=== PATIENT | female | born 1940 | race Caucasian/White ===

== ENCOUNTER 2017-09-16 20:51 | Inpatient (IN) | payer OTHER, MEDICARE ==
[2017-09-16 21:04] VITALS: BP 161/73; PULSE 97; RESP 16; TEMP 99.5; O2SAT 96
[2017-09-16] MEDS ORDERED: MORPHINE SULFATE 2 MG/ML SYRINGE IV PUSH ONE (21:30)
[2017-09-16] MEDS ORDERED: SODIUM CHLORIDE 0.9% FLUSH 10 ML FLUSH IVF PRN (21:30)
--- NOTE | 2017-09-16 21:32 | PD ---
HPI Chief Complaint: Fall Time Seen by Provider: 21:25 Travel History International Travel<30 days: No Contact w/Intl Traveler<30days: No Traveled to known affect area: No History of Present Illness HPI 77-year-old female brought in by EMS status post being found after a fall it was unwitnessed by her son. Patient does not remember falling. She states she has had similar episodes in the past. Patient only complains of right hip and buttock pain. Patient has mild headache. She denies hitting her head or neck pain. She denies recent illness. She has no dizziness, nausea, vomiting, or other symptoms. Patient has no injuries to the upper extremities. Pain in her buttock and hip is a 6 out of 10. She denies numbness and tingling in the lower extremities. She denies any other focal neurologic deficits. Patient has no known drug allergies. PFSH Past Medical History Cerebrovascular Accident: Yes Diabetes: Yes Patient Takes Glucophage: No Diminished Hearing: No Tetanus Vaccination: Unknown Social History Alcohol Use: No Tobacco Use: No Substance Use: No Allergies-Medications (Allergen,Severity, Reaction): Coded Allergies: No Known Allergies (Unverified , 09/16/17) Review of Systems ROS Limitations: Poor Historian Except as stated in HPI: all other systems reviewed are Neg General / Constitutional: No: Fever Eyes: No: Visual changes HENT: No: Headaches Cardiovascular: No: Chest Pain or Discomfort Respiratory: No: Shortness of Breath Gastrointestinal: No: Abdominal Pain Genitourinary: No: Dysuria Musculoskeletal: No: Pain Skin: No Rash Neurologic: No: Weakness Psychiatric: No: Depression Endocrine: No: Polydipsia Hematologic/Lymphatic: No: Easy Bruising Physical Exam Exam Limitations: Poor Historian Narrative GENERAL: Patient appears in no acute distress. She seems oriented 3. SKIN: Warm and dry. Normal color. Normal turgor. No signs of trauma. No abrasions. HEAD: Atraumatic. Normocephalic. Nontender. EYES: Pupils equal and round. No scleral icterus. No injection or drainage. ENT: No nasal bleeding or discharge. Mucous membranes pink and moist. No dental injury. Pharynx is clear. Airways patent. NECK: Trachea midline. No bony tenderness or step-off. Range of motion is full and supple CARDIOVASCULAR: Regular rate and rhythm. No murmurs gallops or rubs appreciated RESPIRATORY: No accessory muscle use. Clear to auscultation. Breath sounds equal bilaterally. GASTROINTESTINAL: Abdomen soft, non-tender, nondistended. Hepatic and splenic margins not palpable. MUSCULOSKELETAL: Extremities without clubbing, cyanosis, or edema. No obvious deformities. Patient has soft tissue tenderness along the right lower lumbar and sacroiliac regions. Patient has no shortening, or crepitus in either hip. Pelvis rock is normal. No midline tenderness along the spinal cord. Patient is able to plantar flex and dorsiflex without difficulty. NEUROLOGICAL: Awake and alert. No obvious cranial nerve deficits. Motor grossly within normal limits. Five out of 5 muscle strength in the arms and legs. Normal speech. PSYCHIATRIC: Appropriate mood and affect; insight and judgment normal. Data Data Last Documented VS Vital Signs Date Time Temp Pulse Resp B/P (MAP) Pulse Ox O2 Delivery O2 Flow Rate FiO2 09/16/17 21:35 97 Room Air 09/16/17 21:04 99.5 97 16 161/73 (102) Orders Orders Electrocardiogram (09/16/17 21:25) Complete Blood Count With Diff (09/16/17 21:25) Comprehensive Metabolic Panel (09/16/17 21:25) Magnesium (Mg) (09/16/17 21:25) Ckmb (Isoenzyme) Profile (09/16/17 21:25) Troponin I (09/16/17 21:25) Act Partial Throm Time (Ptt) (09/16/17 21:25) Prothrombin Time / Inr (Pt) (09/16/17 21:25) Urinalysis - C+S If Indicated (09/16/17 21:25) Chest, Single Ap (09/16/17 21:25) Ct Brain W/O Iv Contrast(Rout) (09/16/17 21:25) Ecg Monitoring (09/16/17 21:25) Iv Access Insert/Monitor (09/16/17 21:25) Oximetry (09/16/17 21:25) Sodium Chloride 0.9% Flush (Ns Flush) (09/16/17 21:30) Morphine Inj (Morphine Inj) (09/16/17 21:30) Hip, Uni(Ap&Lat) W Ap Pelvis (09/16/17 21:25) Urine Culture (09/16/17 21:30) Sodium Chlorid 0.9% 500 Ml Inj (Ns 500 M (09/16/17 22:15) Lactic Acid (09/16/17 22:13) Act Partial Throm Time (Ptt) (09/16/17 22:13) Morphine Inj (Morphine Inj) (09/16/17 22:15) Sodium Chlor 0.9% 1000 Ml Inj (Ns 1000 M (09/16/17 22:13) Levofloxacin 500 Mg Premix Inj (Levaquin (09/16/17 22:15) Sodium Chloride 0.9% Flush (Ns Flush) (09/16/17 22:15) CKMB (09/16/17 21:30) CKMB% (09/16/17 21:30) Potassium Chloride (Kcl) (09/16/17 22:30) Labs Laboratory Tests Test 09/16/17 21:30 White Blood Count 11.8 TH/MM3 Red Blood Count 5.65 MIL/MM3 Hemoglobin 16.6 GM/DL Hematocrit 47.8 % Mean Corpuscular Volume 84.6 FL Mean Corpuscular Hemoglobin 29.4 PG Mean Corpuscular Hemoglobin Concent 34.7 % Red Cell Distribution Width 13.6 % Platelet Count 322 TH/MM3 Mean Platelet Volume 8.7 FL Neutrophils (%) (Auto) 73.1 % Lymphocytes (%) (Auto) 17.5 % Monocytes (%) (Auto) 8.3 % Eosinophils (%) (Auto) 0.3 % Basophils (%) (Auto) 0.8 % Neutrophils # (Auto) 8.6 TH/MM3 Lymphocytes # (Auto) 2.1 TH/MM3 Monocytes # (Auto) 1.0 TH/MM3 Eosinophils # (Auto) 0.0 TH/MM3 Basophils # (Auto) 0.1 TH/MM3 CBC Comment DIFF FINAL Differential Comment Prothrombin Time 10.3 SEC Prothromb Time International Ratio 1.0 RATIO Activated Partial Thromboplast Time 22.6 SEC Urine Color YELLOW Urine Turbidity CLOUDY Urine pH 5.5 Urine Specific [place] 1.021 Urine Protein 30 mg/dL Urine Glucose (UA) NEG mg/dL Urine Ketones 10 mg/dL Urine Occult Blood MOD Urine Nitrite NEG Urine Bilirubin NEG Urine Urobilinogen LESS THAN 2.0 MG/DL Urine Leukocyte Esterase LARGE Urine RBC 7 /hpf Urine WBC 66 /hpf Urine WBC Clumps FEW Urine Squamous Epithelial Cells 25 /hpf Urine Mucus MOD /lpf Microscopic Urinalysis Comment CULTURE INDICATED Blood Urea Nitrogen 12 MG/DL Creatinine 0.84 MG/DL Random Glucose 130 MG/DL Total Protein 9.0 GM/DL Albumin 3.9 GM/DL Calcium Level 9.7 MG/DL Magnesium Level 1.8 MG/DL Alkaline Phosphatase 121 U/L Aspartate Amino Transf (AST/SGOT) 42 U/L Alanine Aminotransferase (ALT/SGPT) 30 U/L Total Bilirubin 1.0 MG/DL Sodium Level 142 MEQ/L Potassium Level 3.2 MEQ/L Chloride Level 105 MEQ/L Carbon Dioxide Level 23.2 MEQ/L Anion Gap 14 MEQ/L Estimat Glomerular Filtration Rate 66 ML/MIN Total Creatine Kinase 952 U/L Troponin I LESS THAN 0.02 NG/ML MDM Medical Decision Making Medical Screen Exam Complete: Yes Emergency Medical Condition: Yes Medical Record Reviewed: Yes Differential Diagnosis Syncopal episode. Fall. Buttock contusion. Hip contusion. Possible fracture. CVA. TIA Narrative Course Patient appears medically stable at time of exam. Labs ordered including CBC, CMP, magnesium, cardiac panel, urinalysis, and coagulation studies. IV access is obtained the patient was given 2 mg morphine IV. EKG is ordered as well as CT of the brain, chest x-ray, and right hip x-ray with pelvis. CT of the brain shows: 1. Cortical volume loss with ventricular prominence. Mild chronic white matter ischemic changes. No acute findings. CBC shows slight leukocytosis of 11.8, hemoglobin is elevated at 16.6, hematocrit is 47.8. Coagulation studies are normal. Urinalysis suggestive of urinary tract infection, and culture is placed. Patient will be given 1000 mg Rocephin IV. Patient is given 500 mL of normal saline bolus. CMP showed potassium 3.2, normal BUN/creatinine, GFR 66, random glucose elevated once 30. AST slightly low at 42, alk phos is elevated 121, creatinine kinase is notable at 952. First troponin is less than 0.02. Total protein is 9.0. X-rays of the hip and pelvis show osteoarthritis otherwise no acute process. Chest x-ray is negative for acute process. Patient was discussed with Dr. Arana who recommends admitting the patient due to syncopal episode with elevated CPK, urinary tract infection, dehydration and risk of kidney injury. Calls placed to the hospitalist for admission. Diagnosis Primary Impression: Syncope Qualified Codes: R55 - Syncope and collapse Additional Impressions: Urinary tract infection Qualified Codes: N30.00 - Acute cystitis without hematuria Elevated CPK Unwitnessed fall Condition: Stable Louis Coronel September 16, 2017 21:32
[2017-09-16 21:35] VITALS: O2SAT 97
[2017-09-16 21:46] LABS: AUTOMATED NEUTROPHIL # 8.6 TH/MM3 (1.8-7.7); BASOPHIL # 0.1 TH/MM3 (0-0.2); BASOPHIL % 0.8 % (0.0-2.0); EOSINOPHIL % 0.3 % (0.0-4.0); HEMATOCRIT 47.8 % (35.0-46.0); HEMOGLOBIN 16.6 GM/DL (11.6-15.3); LYMPH % 17.5 % (9.0-44.0); LYMPHOCYTE # 2.1 TH/MM3 (1.0-4.8); MEAN CELL VOLUME 84.6 FL (80.0-100.0); MEAN CORPUSCULAR HEMOGLOBIN 29.4 PG (27.0-34.0); MEAN CORPUSCULAR HGB CONC 34.7 % (32.0-36.0); MEAN PLATELET VOLUME 8.7 FL (7.0-11.0); MONO % 8.3 % (0.0-8.0); NEUT % 73.1 % (16.0-70.0); PLATELET COUNT 322 TH/MM3 (150-450); RED BLOOD COUNT 5.65 MIL/MM3 (4.00-5.30); RED CELL DISTRIBUTION WIDTH 13.6 % (11.6-17.2); WHITE BLOOD COUNT 11.8 TH/MM3 (4.0-11.0)
--- NOTE | 2017-09-16 21:53 | RADRPT ---
EXAM DATE: 09/16/2017 9:47 PM EDT AGE/SEX: 77 years / Female INDICATIONS: Syncope. CLINICAL DATA: This is the patient's initial encounter. Patient reports that signs and symptoms have been present for 1 day and indicates a pain score of 0/10. MEDICAL/SURGICAL HISTORY: Cerebrovascular disease. Diabetes. None. RADIATION DOSE: 36.13 CTDI (mGy) COMPARISON: No prior [facility] exams available for comparison. TECHNIQUE: CT of the head without contrast. Using automated exposure control and adjustment of the mA and/or kV according to patient size, radiation dose was kept as low as reasonably achievable to ob tain optimal diagnostic quality images. FINDINGS: Cerebrum: There is cortical volume loss and ventricular prominence. Chronic white matter ischemic ch anges present. Posterior Fossa: The cerebellum and brainstem are intact. The 4th ventricle is midline. The cerebe llopontine angle is unremarkable. Extracranial: The visualized portion of the orbits is intact. Skull: The calvaria is intact. No evidence of skull fracture. CONCLUSION: 1. Cortical volume loss with ventricular prominence. Mild chronic white matter ischemic changes. No acute findings. Electronically signed by: Momo Sal MD 09/16/2017 9:52 PM EDT
[2017-09-16 21:55] LABS: PROTHROMBIN TIME - PATIENT 10.3 SEC (9.8-11.6)
[2017-09-16 22:02] LABS: BILIRUBIN, URINE NEG (NEG); BLOOD, URINE MOD (NEG); GLUCOSE,URINE NEG (NEG); KETONE, URINE 10 mg/dL (NEG); MUCUS URINE MOD /lpf (OCC); NITRITE,URINE NEG (NEG); PH, URINE 5.5 (5.0-8.5); SQUAMOUS EPITHELIAL CELL URINE 25 /hpf (0-5); URINE COLOR YELLOW (YELLW/STRAW); URINE LEUKOCYTE ESTERASE LARGE (NEG); WHITE BLOOD CELL CLUMPS FEW
[2017-09-16 22:13] LABS: ALBUMIN 3.9 GM/DL (3.4-5.0); AST (GOT) 42 U/L (15-37); BICARBONATE 23.2 MEQ/L (21.0-32.0); BLOOD UREA NITROGEN 12 MG/DL (7-18); CALCIUM 9.7 MG/DL (8.5-10.1); CHLORIDE 105 MEQ/L (98-107); CREATININE 0.84 MG/DL (0.50-1.00); GLOMERULAR FILTRATION RATE 66 ML/MIN (>89); GLUCOSE,RANDOM 130 MG/DL (74-106); MAGNESIUM 1.8 MG/DL (1.5-2.5); SODIUM (NA) 142 MEQ/L (136-145)
[2017-09-16] MEDS ORDERED: SODIUM CHLOR 0.9% 1000 ML INJ 1,000 ML IV SCH ×2 (22:13→22:43)
--- NOTE | 2017-09-16 22:14 | RADRPT ---
EXAM DATE: 09/16/2017 10:10 PM EDT AGE/SEX: 77 years / Female INDICATIONS: Pain post fall today. CLINICAL DATA: This is the patient's initial encounter. Patient reports that signs and symptoms have been present for 1 day and indicates a pain score of 4/10. MEDICAL/SURGICAL HISTORY: None. None. COMPARISON: No prior [facility] exams available for comparison. FINDINGS: Heart size is enlarged. Mild basilar dependent opacity, probably atelectasis. No pneumothorax or effu krystal. CONCLUSION: Cardiomegaly. Minimal basilar dependent atelectasis. Electronically signed by: Momo Sal MD 09/16/2017 10:13 PM EDT
[2017-09-16] MEDS ORDERED: SODIUM CHLORIDE 0.9% FLUSH 10 ML FLUSH IV FLUSH PRN ×2 (22:15→22:45)
[2017-09-16] MEDS ORDERED: SODIUM CHLORID 0.9% 500 ML INJ 500 ML IV ONE (22:15)
[2017-09-16] MEDS ORDERED: MORPHINE SULFATE 4 MG/ML INJ IV PUSH ONE (22:15)
[2017-09-16] MEDS ORDERED: LEVOFLOXACIN 500 MG PREMIX INJ 100 ML IV ONE (22:15)
--- NOTE | 2017-09-16 22:17 | RADRPT ---
EXAM DATE: 09/16/2017 10:12 PM EDT AGE/SEX: 77 years / Female INDICATIONS: Pain in right hip post fall today. CLINICAL DATA: This is the patient's initial encounter. Patient reports that signs and symptoms have been present for 1 day and indicates a pain score of 5/10. MEDICAL/SURGICAL HISTORY: None. None. COMPARISON: No prior [facility] exams available for comparison. FINDINGS: There is moderate osteoarthritis of the hips. No definite fracture identified. No dislocation. CONCLUSION: Moderate osteoarthritis. No acute fracture identified Electronically signed by: Momo Sal MD 09/16/2017 10:15 PM EDT
[2017-09-16 22:19] LABS: ALKALINE PHOSPHATASE 121 U/L (45-117); ALT (GPT) 30 U/L (10-53); TROPONIN I LESS THAN 0.02 NG/ML (0.02-0.05)
[2017-09-16] MEDS ORDERED: POTASSIUM CHLORIDE 20 MEQ CONTROLLED RELEASE TAB PO ONE (22:30)
[2017-09-16] MEDS ORDERED: ACETAMINOPHEN/HYDROcodone 325 MG/5 MG TAB PO PRN (22:45)
[2017-09-16] MEDS ORDERED: SENNOSIDES 8.6 MG TAB PO PRN (22:45)
[2017-09-16] MEDS ORDERED: MAGNESIUM HYDROXIDE SUSP 30 ML CUP PO PRN (22:45)
[2017-09-16] MEDS ORDERED: METOCLOPRAMIDE HCL 10 MG/2 ML VIAL IV PUSH PRN (22:45)
[2017-09-16] MEDS ORDERED: LACTULOSE SYRUP 20 GM/30 ML CUP PO PRN (22:45)
[2017-09-16] MEDS ORDERED: BISACODYL 10 MG SUPP RECTAL PRN (22:45)
[2017-09-16] MEDS ORDERED: ACETAMINOPHEN/HYDROcodone 325 MG/10 MG TAB PO PRN (22:45)
--- NOTE | 2017-09-16 22:46 | HHI.HP ---
HPI Service [facility] Primary Care Physician No Primary Care Physician Admission Diagnosis Diagnoses: (1) Fall Diagnosis: Principal (2) UTI (urinary tract infection) Diagnosis: Principal (3) Rhabdomyolysis Diagnosis: Principal Travel History International Travel<30 Days: No Contact w/Intl Traveler <30 Da: No Traveled to Known Affected Are: No History of Present Illness This is a 77-year-old female with a PMH of HTN and h/o CVA who was brought to the ER by EMS after being found lying on the floor by Son. Pt w/ little recollection of events. States she's had h/o recurrent falls in the past, however does not recall falling today. Denies fever, chills, nausea, vomiting, diarrhea, dizziness or chest pain. On arrival, BP 161/73, HR 97, O2 sat 96% on RA, Temp 99.5. WBC 11.8. K+ 3.2. CPK 952. Lactic Acid 1.6. INR 1.0. UA positive for UTI. CT Head with no acute findings. CXR cardiomegaly. Hip X- ray moderate osteoarthritis no acute fracture. S/p Levaquin in ER. Review of Systems Except as stated in HPI: all other systems reviewed are Neg ROS: 14 point review of systems otherwise negative. Past Family Social History Past Medical History PMH: HTN and h/o CVA Past Surgical History PAST SURGICAL HISTORY: None Allergies: Coded Allergies: No Known Allergies (Unverified , 09/16/17) Family History PAST FAMILY HISTORY: Reviewed. No h/o DM or CAD Social History PAST SOCIAL HISTORY: Negative for alcohol, tobacco or drugs. Physical Exam Vital Signs Vital Signs Date Time Temp Pulse Resp B/P (MAP) Pulse Ox O2 Delivery O2 Flow Rate FiO2 09/16/17 21:35 97 Room Air 09/16/17 21:04 99.5 97 16 161/73 (102) 96 Physical Exam PE: GENERAL: Pleasant elderly white female in no acute distress. HEENT: PERRLA, EOMI. No scleral icterus or conjunctival pallor. No lid lag or facial droop. CARDIOVASCULAR: Regular rate and rhythm. No obvious murmurs to auscultation. No chest tenderness to palpation. RESPIRATORY: No obvious rhonchi or wheezing. Clear to auscultation. Breath sounds equal bilaterally. GASTROINTESTINAL: Abdomen soft, non-tender, nondistended. BS normal. MUSCULOSKELETAL: Extremities without clubbing, cyanosis, or edema. No obvious deformities. NEUROLOGICAL: Awake, alert and oriented x4. No focal neurologic deficits. Moving both upper and lower extremities spontaneously. Laboratory Laboratory Tests Test 09/16/17 21:30 09/16/17 22:27 White Blood Count 11.8 Red Blood Count 5.65 Hemoglobin 16.6 Hematocrit 47.8 Mean Corpuscular Volume 84.6 Mean Corpuscular Hemoglobin 29.4 Mean Corpuscular Hemoglobin Concent 34.7 Red Cell Distribution Width 13.6 Platelet Count 322 Mean Platelet Volume 8.7 Neutrophils (%) (Auto) 73.1 Lymphocytes (%) (Auto) 17.5 Monocytes (%) (Auto) 8.3 Eosinophils (%) (Auto) 0.3 Basophils (%) (Auto) 0.8 Neutrophils # (Auto) 8.6 Lymphocytes # (Auto) 2.1 Monocytes # (Auto) 1.0 Eosinophils # (Auto) 0.0 Basophils # (Auto) 0.1 CBC Comment DIFF FINAL Differential Comment Prothrombin Time 10.3 Prothromb Time International Ratio 1.0 Activated Partial Thromboplast Time 22.6 Urine Color YELLOW Urine Turbidity CLOUDY Urine pH 5.5 Urine Specific [place] 1.021 Urine Protein 30 Urine Glucose (UA) NEG Urine Ketones 10 Urine Occult Blood MOD Urine Nitrite NEG Urine Bilirubin NEG Urine Urobilinogen LESS THAN 2.0 Urine Leukocyte Esterase LARGE Urine RBC 7 Urine WBC 66 Urine WBC Clumps FEW Urine Squamous Epithelial Cells 25 Urine Mucus MOD Microscopic Urinalysis Comment CULTURE INDICATED Blood Urea Nitrogen 12 Creatinine 0.84 Random Glucose 130 Total Protein 9.0 Albumin 3.9 Calcium Level 9.7 Magnesium Level 1.8 Alkaline Phosphatase 121 Aspartate Amino Transf (AST/SGOT) 42 Alanine Aminotransferase (ALT/SGPT) 30 Total Bilirubin 1.0 Sodium Level 142 Potassium Level 3.2 Chloride Level 105 Carbon Dioxide Level 23.2 Anion Gap 14 Estimat Glomerular Filtration Rate 66 Total Creatine Kinase 952 Creatine Kinase MB 11.1 Creatine Kinase MB % 1.2 Troponin I LESS THAN 0.02 Date/Time Source Procedure Growth Status 09/16/17 21:30 Urine Clean Catch Urine Culture Pending Received Result Diagram: 09/16/17212909/16/172129 Caprini VTE Risk Assessment Caprini VTE Risk Assessment: No/Low Risk (score <= 1) Caprini Risk Assessment Model Point Value = 1 Point Value = 2 Point Value = 3 Point Value = 5 Age 41-60 Minor surgery BMI > 25 kg/m2 Swollen legs Varicose veins or History of unexplained or recurrent spontaneous Oral contraceptives or hormone replacement Sepsis (< 1 month) Serious lung disease, including pneumonia (< 1 month) Abnormal pulmonary function Acute myocardial infarction Congestive heart failure (< 1 month) History of inflammatory bowel disease Medical patient at bed rest Age 61-74 Arthroscopic surgery Major open surgery (> 45 min) Laparoscopic surgery (> 45 min) Malignancy Confined to bed (> 72 hours) Immobilizing plaster cast Central venous access Age >= 75 History of VTE Family history of VTE Factor V Leiden Prothrombin [id number] Lupus anticoagulant Anticardiolipin antibodies Elevated serum homocysteine Heparin-induced thrombocytopenia Other congenital or acquired thrombophilia Stroke (< 1 month) Elective arthroplasty Hip, pelvis, or leg fracture Acute spinal cord injury (< 1 month) Prophylaxis Regimen Total Risk Factor Score Risk Level Prophylaxis Regimen 0-1 Low Early ambulation 2 Moderate Order ONE of the following: *Sequential Compression Device (SCD) *Heparin 5000 units SQ BID 3-4 Higher Order ONE of the following medications: *Heparin 5000 units SQ TID *Enoxaparin/Lovenox 40 mg SQ daily (WT < 150 kg, CrCl > 30 mL/min) *Enoxaparin/Lovenox 30 mg SQ daily (WT < 150 kg, CrCl > 10-29 mL/min) *Enoxaparin/Lovenox 30 mg SQ BID (WT < 150 kg, CrCl > 30 mL/min) AND/OR *Sequential Compression Device (SCD) 5 or more Highest Order ONE of the following medications: *Heparin 5000 units SQ TID (Preferred with Epidurals) *Enoxaparin/Lovenox 40 mg SQ daily (WT < 150 kg, CrCl > 30 mL/min) *Enoxaparin/Lovenox 30 mg SQ daily (WT < 150 kg, CrCl > 10-29 mL/min) *Enoxaparin/Lovenox 30 mg SQ BID (WT < 150 kg, CrCl > 30 mL/min) AND *Sequential Compression Device (SCD) Assessment and Plan Problem List: (1) Fall ICD Code: W19.XXXA - Unspecified fall, initial encounter (2) UTI (urinary tract infection) ICD Code: N39.0 - Urinary tract infection, site not specified (3) Rhabdomyolysis ICD Code: M62.82 - Rhabdomyolysis Assessment and Plan A/P: 1. Fall: s/p fall at home, unwitnessed, pt w/ no recollection of events. Reports h/o recurrent falls at home. CT Head w/ no acute findings, images reviewed by me. PT for eval/tx. 2. UTI: U/a w/ significant UTI, asymptomatic, s/p Levaquin in ER, will follow up cultures, continue IV Abx, IVF for hydration, monitor I/O. 3. Rhabdomyolysis: CPK 952, IVF for hydration, repeat CPK for trend. Likely related to fall, unknown down time. 4. DVT Prophylaxis: SCD/Teds 5. Social work for d/c planning as needed. 6. Case discussed at length w/ ER physician, labs/records/imaging reviewed by me. Adelaida Cooper MD September 16, 2017 22:46
[2017-09-17] VITALS (11 sets, daily range): BP systolic 144–202; BP diastolic 68–94; PULSE 78–88; RESP 16–20; TEMP 97.7–98.5; O2SAT 93–99
[2017-09-17 07:45] LABS: AUTOMATED NEUTROPHIL # 6.2 TH/MM3 (1.8-7.7); BASOPHIL % 0.5 % (0.0-2.0); EOSINOPHIL # 0.2 TH/MM3 (0-0.4); EOSINOPHIL % 2.1 % (0.0-4.0); HEMATOCRIT 40.4 % (35.0-46.0); HEMOGLOBIN 14.3 GM/DL (11.6-15.3); LYMPHOCYTE # 2.1 TH/MM3 (1.0-4.8); MEAN CELL VOLUME 84.7 FL (80.0-100.0); MEAN CORPUSCULAR HGB CONC 35.4 % (32.0-36.0); MONO % 9.6 % (0.0-8.0); MONOCYTE # 0.9 TH/MM3 (0-0.9); NEUT % 65.8 % (16.0-70.0); PLATELET COUNT 257 TH/MM3 (150-450); RED BLOOD COUNT 4.77 MIL/MM3 (4.00-5.30); RED CELL DISTRIBUTION WIDTH 13.7 % (11.6-17.2); WHITE BLOOD COUNT 9.4 TH/MM3 (4.0-11.0)
[2017-09-17 08:27] LABS: ALBUMIN 3.1 GM/DL (3.4-5.0); ALKALINE PHOSPHATASE 107 U/L (45-117); ALT (GPT) 28 U/L (10-53); AST (GOT) 33 U/L (15-37); BICARBONATE 23.5 MEQ/L (21.0-32.0); BLOOD UREA NITROGEN 9 MG/DL (7-18); CALCIUM 8.7 MG/DL (8.5-10.1); CHLORIDE 108 MEQ/L (98-107); CREATININE 0.67 MG/DL (0.50-1.00); GLOMERULAR FILTRATION RATE 85 ML/MIN (>89); GLUCOSE,RANDOM 119 MG/DL (74-106); SODIUM (NA) 142 MEQ/L (136-145); TOTAL PROTEIN 7.4 GM/DL (6.4-8.2)
[2017-09-17] MEDS: SODIUM CHLORIDE 0.9% FLUSH 10 ML FLUSH IV FLUSH SCH ×2 (10:06→21:36)
[2017-09-17] MEDS: DOCUSATE SODIUM 50 MG/SENNA 8.6 MG TAB PO SCH ×2 (10:07→21:36)
[2017-09-17] MEDS ORDERED: POTASSIUM CHLORIDE 10 MEQ CONTROLLED RELEASE TAB PO ONE ×2 (13:30→17:45)
--- NOTE | 2017-09-17 13:30 | EKG ---
Date Performed: 09/16/2017 Time Performed: 22:04:57 PTAGE: 77 years EKG: Sinus rhythm NONSPECIFIC ST & T-WAVE ABNORMALITY BORDERLINE ECG NO PREVIOUS TRACING DOCTOR: Sam Dickens Interpretating Date/Time 09/17/2017 13:30:23
--- NOTE | 2017-09-17 13:32 | HHI.PR ---
Subjective Remarks Follow-up on patient with syncopal episode, closed head injury. Patient seen and examined. Patient is unable to recall any events leading up to her syncopal episode. Grandson is at the bedside and provides further information. Patient lives alone and when her grandson was not able to get a hold of her via phone he went to the house to check on her and found her down in the bathroom. Per his report, patient had an episode of bowel incontinence in her bed. He also states that she was not herself and was confused when he found her. Patient denies any recent illness. She does state that she did not eat much the day before. She denies recalling having any weakness, numbness/ tingling, vision changes, headache, palpitations, shortness of breath, chest pain, nausea, vomiting, abdominal pain or tongue biting. She does think that maybe she got a little dizzy but she is not sure. She denies any associated fever or chills. She has never had an episode like this before. She does take alprazolam as needed but denies taking any recently. She does state that last night she had some difficulty moving the left leg and does not know why. She has a history of back pain and sciatica that affects the right leg. Patient denies any dysuria but does state that she has had some urinary frequency. Objective Vitals Vital Signs Date Time Temp Pulse Resp B/P (MAP) Pulse Ox O2 Delivery O2 Flow Rate FiO2 09/17/17 12:35 82 18 163/70 (101) 94 09/17/17 08:44 78 18 155/72 (99) 93 Room Air 09/17/17 06:44 82 16 155/70 (98) 99 Room Air 09/17/17 01:42 88 16 155/70 (98) 96 Room Air 09/16/17 21:35 97 Room Air 09/16/17 21:04 99.5 97 16 161/73 (102) 96 Result Diagram: 09/17/17 0640 09/17/1740 Imaging Last Impressions Hip and Pelvis X-Ray 09/16/172124 Signed Impressions: CONCLUSION: Moderate osteoarthritis. No acute fracture identified Head CT 09/16/172124 Signed Impressions: CONCLUSION: 1. Cortical volume loss with ventricular prominence. Mild chronic white matter ischemic changes. No acute findings. Chest X-Ray 09/16/172124 Signed Impressions: CONCLUSION: Cardiomegaly. Minimal basilar dependent atelectasis. Objective Remarks GENERAL: This is a well-developed well-nourished elderly female patient, in no acute distress. Awake and alert. Grandson is at the bedside. She is mostly oriented and is able to correctly tell me the president, city, state and that she is at [facility]. She did incorrectly state the month was September and was unable to recall the year. SKIN: Warm and dry. No generalized rash. HEENT: Normocephalic. +tenderness to palpation over right side of head. PERRLA , EOMI. No scleral icterus or conjunctival pallor. No lid lag or facial droop. CARDIOVASCULAR: Regular rate and rhythm. No obvious murmurs to auscultation. No chest tenderness to palpation. RESPIRATORY: Nonlabored. Clear to auscultation. Breath sounds equal bilaterally. No obvious rhonchi or wheezing. GASTROINTESTINAL: Abdomen soft, non-tender, nondistended. BS normal. MUSCULOSKELETAL: Extremities without clubbing, cyanosis, or edema. No obvious deformities. NEUROLOGICAL: Awake, alert and oriented x 2-3. Moving both upper and lower extremities spontaneously. No focal neurologic deficits. Normal speech. PSYCHIATRIC: Calm and cooperative. Appropriate mood and affect. Procedures None A/P Problem List: (1) Fall ICD Code: W19.XXXA - Unspecified fall, initial encounter (2) UTI (urinary tract infection) ICD Code: N39.0 - Urinary tract infection, site not specified (3) Rhabdomyolysis ICD Code: M62.82 - Rhabdomyolysis Assessment and Plan 77-year-old female with past medical history significant for hypertension with previous history of CVA presents to [facility] status post syncopal episode. Syncopal episode status post unwitnessed fall at home with closed head injury, unclear etiology History of previous CVA CT Head no acute intracranial findings -Consult neurology, appreciate recommendations -MRI brain and 2D Echo ordered -Obtain carotid ultrasound and EEG study -Neuro checks -Fall and seizure precautions -Holter monitor -Continuous cardiac telemetry -Obtain orthostatic BP measurements -PT/OT/ST -obtain A1c, TSH, B12, lipid profile UTI -Patient started on IV Levaquin in the ED -Follow-up on urine culture results Hypokalemia Potassium level 2.9 Given IV and p.o. repletion -Repeat BMP in a.m. Rhabdomyolysis Patient found down on the ground for unknown length of time -IV fluids -Continue to monitor kidney function closely -Trend CK Hypertension Patient on lisinopril 20 mg daily and hydrochlorothiazide 25 mg daily at home -Resume lisinopril dose. Hold hydrochlorothiazide for now. -Clonidine prn with parameters -Continue to monitor BP and adjust treatment accordingly Hyperglycemia No reported history of diabetes -Obtain hemoglobin A1c -Accu-Cheks and insulin sliding scale DVT prophylaxis -Heparin sq Discharge Planning Not ready for discharge. Discharge pending workup and neurology clearance. Jo Rubin September 17, 2017 13:32
[2017-09-17] MEDS ORDERED: ATORVASTATIN 40 MG TAB PO ONE (13:45)
[2017-09-17] MEDS ORDERED: ASPIRIN EC 81 MG TABEC PO ONE ×2 (13:45→16:45)
[2017-09-17] MEDS ORDERED: LISINOPRIL 20 MG TAB PO ONE (13:45)
[2017-09-17 13:59] LABS: PHOSPHORUS 3.4 MG/DL (2.5-4.9)
[2017-09-17 14:23] LABS: FOLATE 17.3 NG/ML (3.1-17.5)
[2017-09-17 14:28] LABS: CHOLESTEROL/ HDL RATIO 3.6 RATIO; HDL CHOLESTEROL 41.6 MG/DL (40.0-60.0)
[2017-09-17] MEDS: PENTOXIFYLLINE 400 MG CONTROLLED RELEASE TAB PO SCH ×2 (14:47→22:02)
[2017-09-17] MEDS ORDERED: cloNIDine HCL 0.1 MG TAB PO PRN (16:15)
[2017-09-17] MEDS ORDERED: ATOR40TA16 PO (18:44)
[2017-09-17] MEDS ORDERED: ALPR0.25 PO (18:44)
[2017-09-17] MEDS ORDERED: LISI20TA3 PO (18:44)
[2017-09-17] MEDS ORDERED: LORA-650 PO (18:45)
[2017-09-17] MEDS ORDERED: PENT400T PO (18:45)
--- NOTE | 2017-09-17 19:32 | MB ---
cc: Ovidio Queen MD, David J MD DATE: 09/17/2017 HISTORY OF PRESENT ILLNESS: The patient is a 77-year-old, right-handed woman with hypertension, borderline diabetes, borderline cholesterol who had 3 syncopal spells in the last 2 years. She said she passed out in her house about 2 years ago for a few minutes, all of a sudden she woke up on the floor. Then about a year ago, she passed out in her garden, woke up in the dark sitting up. This admission, she does not really remember what happened. She is not sure where she passed out. She evidently was found by her son. She has a mild headache, some pain in the buttock on the right. ALLERGIES: NO KNOWN DRUG ALLERGIES. MEDICATIONS: None listed here. SOCIAL HISTORY: She is not a smoker or a drinker, lives by herself. FAMILY HISTORY: Negative for cancer, seizure or stroke. REVIEW OF SYSTEMS: She denies any chest pain or palpitations. She says she has not fallen though she has a walker and lives in a mobile home. She usually walks from furniture to furniture. Her chest x-ray here showed some cardiomegaly. She does not think that she had any incontinence. She is not sure how long she passed out for. REVIEW OF SYSTEMS: She denies any history of VA, CABG, stent, angioplasty, A-Fib, Coumadin, chest pain, palpitations, prior headache, renal, hepatic or pulmonary disease, thyroid disease, lupus, ulcer, cancer, seizure, stroke. PHYSICAL EXAMINATION: VITAL SIGNS: 84, 18, 158/80 to 202/81. NECK: There are no carotid bruits. HEART: Regular rate and rhythm. I did not detect a murmur. NEUROLOGIC: She is awake and alert. She did not know the month or the year, but knew she lived in [facility]. She is not aphasic. She followed commands well. Pupils are equal. Visual moreira are full. Extraocular movements are intact without nystagmus. Face symmetric. Tongue was midline. No drift. Normal strength in upper and lower extremities bilaterally. DTRs absent throughout. Toes are downgoing bilaterally. Pinprick is intact throughout. She is not ataxic on [id number], although she is a bit hesitant using that left arm compared to the right. There is no asterixis on the left. LABORATORY DATA: CBC: White count was initially 11, but has come down to normal. Basic metabolic profile is essentially unremarkable. Glucose 130. LFTs are normal. CPK 700. Troponin negative. Albumin normal. LDL cholesterol normal. B12, thyroid normal. UA: 66 white cells, large amount of leukocyte esterase. IMAGING STUDIES: She had a chest x-ray with cardiomegaly. She had an x-ray of her hip that showed some just osteoarthritis. CAT scan of the brain showed some white matter changes. IMPRESSION: Some kind of syncopal spell. Seizure could be considered. There is a little bit of an asymmetry in her exam. On the left arm, she seemed a little hesitant to use at times but appears to have normal strength there. We will check an MRI of the brain. I note her CT shows diffuse atrophy. It is possible she could have some dementia. The ventricles are large, but there is central and cortical atrophy. We will check an electroencephalogram, MRI of the brain and cervical spine and I will be following her with you in the hospital. We will check some standing blood pressures on her too. Continue her on tele and I note that tele has been sinus rhythm, so far. Her UTI should be treated. MD FAISAL Ni/ , 06:47 PM , 07:31 PM
[2017-09-17] MEDS ORDERED: GADODIAMIDE PF 287 MG/ML 20 ML VIAL (for RAD MRI) IVCONTRAST ONE (20:42)
[2017-09-17] MEDS ORDERED: LEVOFLOXACIN 750 MG PREMIX INJ 150 ML IV SCH (21:00)
--- NOTE | 2017-09-17 21:04 | RADRPT ---
EXAM DATE: 09/17/2017 8:52 PM EDT AGE/SEX: 77 years / Female INDICATIONS: . Syncope and fall. CLINICAL DATA: This is the patient's initial encounter. Patient reports that signs and symptoms have been present for 1 day and indicates a pain score of 0/10. MEDICAL/SURGICAL HISTORY: . Sciatica. Psoriasis. Appendectomy. Cholecystectomy. Hysterectomy . Tonsillectomy. COMPARISON: No prior [place] exams available for comparison. TECHNIQUE: Multiplanar, multisequence MRI examination of the cervical spine was performed without co ntrast. FINDINGS: ALIGNMENT: Mild anterolisthesis is noted of C2 on C3. There is slight reversal of normal lordosis th roughout the mid cervical spine. Slight retrolisthesis is noted of C6 on C7. FACET AND OSSEOUS STRUCTURES: Vertebral body height is well-maintained. There is no evidence of acut e fracture, bone marrow edema or destructive changes. Mild to moderate facet arthropathy is identifie d. There is significant joint space narrowing with hypertrophic arthropathic changes involving the C2 -3 articulation. INTERVERTEBRAL DISC SPACES: Degenerative disc changes ranging from mild to moderate are noted. C2-3: Mild degenerative disc disease without evidence of focal disc herniation, foraminal encroachmen t or spinal stenosis. C3-4: Mild degenerative disc disease with disc space narrowing and mild spondylosis. There is no evid ence of focal disc herniation, significant foraminal encroachment or spinal stenosis. C4-5: Mild degenerative disc disease without evidence of focal disc herniation, foraminal encroachmen t or spinal stenosis. C5-6: Moderate degenerative disc disease with significant disc space narrowing and marginal spondylos is. There is mild broad-based posterior disc osteophyte complex with mild epidural mass effect. Mild to moderate bilateral foraminal encroachment is noted. C6-7: Iyam-tw-rhiipvic degenerative disc disease with disc space narrowing and mild broad-based disc osteophyte complex. There is mild bilateral foraminal encroachment. There is no significant epidural mass effect or spinal cord compression. C7-T1: Unremarkable. NEUROLOGIC STRUCTURES: The spinal cord and nerve roots appear normal. There is no evidence of alexei krystal. CONCLUSION: 1. Degenerative disc disease and facet arthropathy 2. No evidence of focal disc herniation or acute bony abnormality. 3. Mild degenerative listhesis at C2-3 and C6-7. 4. Mild to moderate bilateral foraminal stenosis at C5-6. Electronically signed by: Tank Solano MD 09/17/2017 9:02 PM EDT
--- NOTE | 2017-09-17 21:13 | RADRPT ---
EXAM DATE: 09/17/2017 9:00 PM EDT AGE/SEX: 77 years / Female INDICATIONS: Confusion. Syncope. CLINICAL DATA: This is the patient's initial encounter. Patient reports that signs and symptoms have been present for 1 day and indicates a pain score of 0/10. MEDICAL/SURGICAL HISTORY: . Sciatica. Psoriasis. Appendectomy. Cholecystectomy. Hysterectomy . Tonsillectomy. COMPARISON: No prior [place] exams available for comparison. TECHNIQUE: Multiplanar, multisequence examination of the brain was performed without and with 20cc ml Omniscan (gadodiamide) contrast as a single exam dose. FINDINGS: Cerebrum: The ventricles are significantly enlarged. No evidence of midline shift, mass lesion, hemo rrhage or acute infarction. No extraaxial fluid collections are seen. The pituitary gland and supra sellar cistern are normal in configuration. White Matter: Mild to moderate T2 hyperintense changes are seen throughout the cerebral white matter . Posterior Fossa: The cerebellum and brainstem are intact. The 4th ventricle is midline. The cerebel lopontine angle is unremarkable. The cerebellar tonsils are normal in position. Diffusion Imaging: No focal areas of restricted diffusion are seen. No evidence of acute infarction . Extracranial: The visualized portions of the orbits and paranasal sinuses are unremarkable. Post Contrast: No abnormal areas of parenchymal or dural enhancement. No evidence of blood-brain ba rrier breakdown. CONCLUSION: 1. Ventriculomegaly with mild to moderate cerebral white matter disease most characteristic of centr al atrophy with chronic ischemic white matter changes. 2. No evidence of acute infarct, hemorrhage, mass or edema. Electronically signed by: Tank Solano MD 09/17/2017 9:11 PM EDT
[2017-09-17] MEDS: HEPARIN SODIUM - SQ 10,000 UNITS/ML VIAL SQ SCH (21:36)
[2017-09-17] MEDS: NS + KCL 20 MEQ INJ 1,000 ML IV SCH (22:02)
[2017-09-18] VITALS (11 sets, daily range): BP systolic 157–200; BP diastolic 78–91; PULSE 69–105; RESP 18–20; TEMP 96.3–97.7; O2SAT 94–96
[2017-09-18] MEDS: PENTOXIFYLLINE 400 MG CONTROLLED RELEASE TAB PO SCH ×3 (06:39→22:12)
--- NOTE | 2017-09-18 07:39 | HHI.PR ---
Objective Vital Signs Date Time Temp Pulse Resp B/P (MAP) Pulse Ox O2 Delivery O2 Flow Rate FiO2 09/18/17 03:49 69 09/18/17 03:37 97.7 76 18 191/86 (121) 96 09/18/17 00:02 78 09/17/17 23:51 98.0 83 16 145/68 (93) 95 09/17/17 21:25 98.5 80 18 144/94 (111) 96 Manual Cuff/Auscultation 09/17/17 20:00 88 09/17/17 17:52 85 09/17/17 16:56 97.8 84 18 158/80 (106) 94 09/17/17 15:39 180/94 (122) 09/17/17 14:44 97.7 80 20 202/81 (121) 96 09/17/17 12:35 82 18 163/70 (101) 94 09/17/17 08:44 78 18 155/72 (99) 93 Room Air I/O 09/17/17 09/17/17 09/17/17 09/18/17 09/18/17 09/18/17 07:00 15:00 23:00 07:00 15:00 23:00 Intake Total 1000 ml Balance 1000 ml Intake IV Total 1000 ml Result Diagram: 09/17/1740 09/17/17 0640 Objective Remarks awake aler tnot mo or yr moves well but very small stepa dn dillon with turn nl tone no tremor can take larger steps incontinent urine in bed and notes hx of that Assessment and Plan Assessment and Plan imp dementia small steps incont and large vents prob nph will dom, lumbar drain nusu oob PT labs mri c spine neg off asa no cva fu eeg echo us Ovidio Queen MD September 18, 2017 07:39
[2017-09-18 08:21] LABS: BICARBONATE 24.8 MEQ/L (21.0-32.0); CALCIUM 8.5 MG/DL (8.5-10.1); CREATININE 0.68 MG/DL (0.50-1.00)
--- NOTE | 2017-09-18 08:40 | RADRPT ---
EXAM DATE: 09/18/2017 8:34 AM EDT AGE/SEX: 77 years / Female INDICATIONS: Syncope. CLINICAL DATA: This is the patient's initial encounter. Patient reports that signs and symptoms have been present for 2 days and indicates a pain score of 0/10. MEDICAL/SURGICAL HISTORY: . Hypertension. Hypercholesterolemia. Cerebral vascular accident. None. COMPARISON: No prior [place] exams available for comparison. No external comparison. VELOCITY PARAMETERS: ICA/CCA Ratio: Right 1.2 , Left 0.7 ICA: Right 96 cm/sec, Left 70 cm/sec CCA: Right 79 cm/sec, Left 99 cm/sec ECA: Right 85 cm/sec, Left 79 cm/sec Vertebral: Right 51 cm/sec antegrade, Left 40 cm/sec antegrade FINDINGS: Right Carotid: Mild atherosclerotic plaquing at the carotid bifurcation. No significant stenosis is v isualized. The waveforms are within normal limits. Left Carotid: Mild atherosclerotic plaquing at the carotid bifurcation. No significant stenosis is vi sualized. The waveforms are within normal limits. Other: None. CONCLUSION: 1. Mild atherosclerotic changes at both carotid bifurcations. 2. No focal high-grade or hemodynamically significant stenosis. Electronically signed by: Rene Sherman MD 09/18/2017 8:39 AM EDT
[2017-09-18] MEDS: SODIUM CHLORIDE 0.9% FLUSH 10 ML FLUSH IV FLUSH SCH ×2 (09:00→22:12)
[2017-09-18] MEDS: DOCUSATE SODIUM 50 MG/SENNA 8.6 MG TAB PO SCH ×2 (09:00→21:00)
[2017-09-18] MEDS ORDERED: ASPIRIN EC 81 MG TABEC PO SCH (09:00)
[2017-09-18] MEDS: NS + KCL 20 MEQ INJ 1,000 ML IV SCH (09:16)
[2017-09-18] MEDS: LISINOPRIL 20 MG TAB PO SCH (09:17)
[2017-09-18] MEDS: ATORVASTATIN 40 MG TAB PO SCH (09:17)
[2017-09-18] MEDS: HEPARIN SODIUM - SQ 10,000 UNITS/ML VIAL SQ SCH ×2 (09:18→22:12)
[2017-09-18] MEDS: CHOLECALCIFEROL (VIT D3) 1000 UNIT TAB PO SCH (09:18)
--- NOTE | 2017-09-18 10:14 | MG ---
cc: Ovidio Queen MD [facility] [id number] INDICATION: Possible NPH, possible seizure, diabetes. DESCRIPTION: Diffuse 7 Hz slowing is noted. Recording overall is synchronous and symmetric. She reaches stage II sleep. No hemisphere asymmetries are noted. No epileptiform or seizure activity seen. Hyperventilation is not performed. Photic stimulation was performed without significant posterior driving. IMPRESSION: Diffuse theta slowing consistent with a mild diffuse encephalopathy, but no focal abnormalities are noted. No seizure activity seen. Ovidio Queen MD DJM/TL , 09:47 AM , 10:13 AM
--- NOTE | 2017-09-18 10:47 | HHI.PR ---
Subjective Remarks Follow-up on patient with syncopal episode, closed head injury. Patient seen and examined. Patient states she did well overnight. She denies any medical complaints. She denies any fever chills. She denies any headache, vision changes or dizziness. Denies any chest pain or shortness of breath. Denies any nausea, vomiting or abdominal pain. She denies any dysuria, urgency or frequency. Objective Vitals Vital Signs Date Time Temp Pulse Resp B/P (MAP) Pulse Ox O2 Delivery O2 Flow Rate FiO2 09/18/17 09:11 82 20 181/80 (113) 95 09/18/17 07:00 79 09/18/17 03:49 69 09/18/17 03:37 97.7 76 18 191/86 (121) 96 09/18/17 00:02 78 09/17/17 23:51 98.0 83 16 145/68 (93) 95 09/17/17 21:25 98.5 80 18 144/94 (111) 96 Manual Cuff/Auscultation 09/17/17 20:00 88 09/17/17 17:52 85 09/17/17 16:56 97.8 84 18 158/80 (106) 94 09/17/17 15:39 180/94 (122) 09/17/17 14:44 97.7 80 20 202/81 (121) 96 09/17/17 12:35 82 18 163/70 (101) 94 I/O 09/17/17 09/17/17 09/17/17 09/18/17 09/18/17 09/18/17 07:00 15:00 23:00 07:00 15:00 23:00 Intake Total 1000 ml Balance 1000 ml Intake IV Total 1000 ml # Voids 2 # Bowel Movements 1 Result Diagram: 09/17/17 0640 09/18/17 0700 Imaging Last Impressions Carotid Artery Ultrasound 09/18/17 0000 Signed Impressions: CONCLUSION: 1. Mild atherosclerotic changes at both carotid bifurcations. 2. No focal high-grade or hemodynamically significant stenosis. Cervical Spine MRI 09/17/17 8377 Signed Impressions: CONCLUSION: 1. Degenerative disc disease and facet arthropathy 2. No evidence of focal disc herniation or acute bony abnormality. 3. Mild degenerative listhesis at C2-3 and C6-7. 4. Mild to moderate bilateral foraminal stenosis at C5-6. Brain MRI 09/17/17 0000 Signed Impressions: CONCLUSION: 1. Ventriculomegaly with mild to moderate cerebral white matter disease most c haracteristic of central atrophy with chronic ischemic white matter changes. 2. No evidence of acute infarct, hemorrhage, mass or edema. Hip and Pelvis X-Ray 09/16/172124 Signed Impressions: CONCLUSION: Moderate osteoarthritis. No acute fracture identified Head CT 09/16/172124 Signed Impressions: CONCLUSION: 1. Cortical volume loss with ventricular prominence. Mild chronic white matter ischemic changes. No acute findings. Chest X-Ray 09/16/172124 Signed Impressions: CONCLUSION: Cardiomegaly. Minimal basilar dependent atelectasis. Objective Remarks GENERAL: This is a well-developed well-nourished elderly female patient, in no acute distress. Awake and alert. SKIN: Warm and dry. No generalized rash. HEENT: Normocephalic. +tenderness to palpation over right side of head. PERRLA , EOMI. No scleral icterus or conjunctival pallor. No lid lag or facial droop. Airway patent. MMM. CARDIOVASCULAR: Regular rate and rhythm. No obvious murmurs to auscultation. No chest tenderness to palpation. RESPIRATORY: Nonlabored. Clear to auscultation. Breath sounds equal bilaterally. No obvious rhonchi or wheezing. GASTROINTESTINAL: Abdomen soft, non-tender, nondistended. BS normal. MUSCULOSKELETAL: Extremities without clubbing, cyanosis, or edema. No obvious deformities. NEUROLOGICAL: Awake, alert and oriented x 2-3. Moving both upper and lower extremities spontaneously. No focal neurologic deficits. Normal speech. PSYCHIATRIC: Calm and cooperative. Appropriate mood and affect. Procedures None A/P Problem List: (1) Fall ICD Code: W19.XXXA - Unspecified fall, initial encounter (2) UTI (urinary tract infection) ICD Code: N39.0 - Urinary tract infection, site not specified (3) Rhabdomyolysis ICD Code: M62.82 - Rhabdomyolysis Assessment and Plan 77-year-old female with past medical history significant for hypertension with previous history of CVA presents to [facility] post syncopal episode. Syncopal episode status post unwitnessed fall at home with closed head injury, unclear etiology History of previous CVA CT Head no acute intracranial findings MRI brain + ventriculomegaly Carotid US with no hemodynamically significant stenosis MRI c spine with degenerative changes, no cord compression EEG with mild diffuse encephalopathy, no seizure activity -Neurology following, appreciate assistance. 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 NS consulted. -2D Echo pending -Neuro checks -Fall and seizure precautions -Holter monitor -Continuous cardiac telemetry -Obtain orthostatic BP measurements - 2nd request -PT and OT recommend rehab UTI -Patient started on IV Levaquin in the ED -UCX <10,000 GNR, d/c Levaquin Hypokalemia, resolved s/p repletion -Continue to monitor potassium levels indicated Rhabdomyolysis Patient found down on the ground for unknown length of time CK trending down s/p IVF -encourage po intake -Continue to monitor kidney function closely Hypertension, not well controlled, BP 181/80 -Continue on lisinopril 20 mg daily. Begin Norvasc 5 mg daily -Clonidine prn with parameters -Continue to monitor BP and adjust treatment accordingly Hyperglycemia No reported history of diabetes -Obtain hemoglobin A1c/pending -Accu-Cheks and insulin sliding scale Vitamin D deficiency with level of 18.6 -Begin p.o. vitamin D supplementation 2000 units daily -Patient will need to follow-up with PCP in 6-8 weeks have vitamin D level rechecked DVT prophylaxis -Heparin sq Discharge Planning Not ready for discharge. Discharge pending workup, neurosurgery evaluation/ clearance and neurology clearance. Jo Rubin September 18, 2017 10:47
[2017-09-18 11:05] LABS: RHEUMATOID FACTOR SCREEN NEGATIVE (NEGATIVE)
[2017-09-18] MEDS ORDERED: DEXTROSE 50% IN WATER 50 ML VIAL(D50) IV PUSH PRN (11:30)
[2017-09-18] MEDS ORDERED: amLODIPine BESYLATE 5 MG TAB PO ONE (11:30)
[2017-09-18] MEDS ORDERED: GLUCAGON 1 MG/ML VIAL OTHER PRN (11:30)
[2017-09-18] MEDS: INSULIN ASPART SUPPLEMENTAL SCALE SQ SCH ×3 (11:59→21:00)
--- NOTE | 2017-09-18 12:18 | PD.CONS ---
History of Present Illness Service Neurosurgery Consult Requested By Neurology-Dr. Queen Reason for Consult Possible NPH Primary Care Physician No Primary Care Physician Diagnoses: History of Present Illness 77-year-old female admitted through the emergency room on 09/16/2017 after being found on the floor by her family. She was brought to the emergency room by EMS. Patient was reportedly somewhat confused on initial evaluation. She has a history of recurrent falls. The patient complained of right hip pain. A hip x-ray was negative for acute fracture. Physical therapy notes on 09/17/2017 indicate the patient standing with moderate assist, oriented to self only, unsure of how to transfer and how to stand or walk. The patient was seen for neurology consultation on 09/17/2017 and gave a history of 3 syncopal episodes in the past 2 years. An MRI of the brain was obtained which revealed prominent ventricles, which along with the patient's history of memory loss, gait unsteadiness with small steps and incontinence raise question of normal pressure hydrocephalus. Review of Systems Constitutional: COMPLAINS OF: Fatigue, Dizziness, DENIES: Fever Ears, nose, mouth, throat: DENIES: Vertigo Respiratory: DENIES: Shortness of breath Cardiovascular: DENIES: Chest pain Gastrointestinal: DENIES: Abdominal pain Musculoskeletal: COMPLAINS OF: Joint pain, Muscle aches, DENIES: Back pain, Neck pain Neurologic: COMPLAINS OF: Abnormal gait, DENIES: Headache Psychiatric: COMPLAINS OF: Confusion Past Family Social History Allergies: Coded Allergies: No Known Allergies (Unverified , 09/16/17) Past Medical History Hypertension History of CVA Syncopal episodes No history of significant cardiac problems Hyperlipidemia Past Surgical History No surgeries reported Reported Medications Reported Meds & Active Scripts Active Reported Allergy Relief (Loratadine) 10 Mg Tab 10 Mg PO DAILY Pentoxifylline ER (Pentoxifylline) 400 Mg Tab 400 Mg PO TID Alprazolam 0.25 Mg Tab 0.125 Mg PO BID Lisinopril-Hctz 20-25 Mg Tab 1 Tab PO DAILY Atorvastatin (Atorvastatin Calcium) 40 Mg Tab 40 Mg PO HS Family History No cardiac disease, neurologic disorders Social History No alcohol or tobacco use Physical Exam Vital Signs Vital Signs Date Time Temp Pulse Resp B/P (MAP) Pulse Ox O2 Delivery O2 Flow Rate FiO2 09/18/17 11:28 169/78 (108) 09/18/17 09:11 82 20 181/80 (113) 95 09/18/17 07:00 79 09/18/17 03:49 69 09/18/17 03:37 97.7 76 18 191/86 (121) 96 09/18/17 00:02 78 09/17/17 23:51 98.0 83 16 145/68 (93) 95 09/17/17 21:25 98.5 80 18 144/94 (111) 96 Manual Cuff/Auscultation 09/17/17 20:00 88 09/17/17 17:52 85 09/17/17 16:56 97.8 84 18 158/80 (106) 94 09/17/17 15:39 180/94 (122) 09/17/17 14:44 97.7 80 20 202/81 (121) 96 09/17/17 12:35 82 18 163/70 (101) 94 Physical Exam GENERAL: This is a well-nourished, well-developed elderly patient, no apparent distress. SKIN: No abrasions, contusion, rash noted. Skin warm and dry. HEAD: Atraumatic. Normocephalic. No temporal or scalp tenderness. EYES: Sclerae are clear and nonicteric ENT: No facial edema or ecchymosis. No periorbital edema. No CSF otorrhea or rhinorrhea. No palpable facial fracture or deformity. NECK: Trachea midline. No cervical spine tenderness. CARDIOVASCULAR: Regular rate and rhythm without murmurs, gallops, or rubs. RESPIRATORY: Clear to auscultation. Breath sounds equal bilaterally. No wheezes , rales, or rhonchi. GASTROINTESTINAL: Abdomen soft, non-tender, nondistended. No hepato-splenomegaly , or palpable masses. No guarding. MUSCULOSKELETAL: Extremities without cyanosis, or edema. No joint tenderness, or edema noted. No calf tenderness. Dorsalis pedis pulses 2+ bilateral NEUROLOGICAL: Awake and alert Oriented X 3 Speech is clear Converses a little in response to questions Follow simple commands with mild difficulty Answers questions appropriately Appears to have somewhat diminished judgment and insight Recent and remote memory are moderately impaired No evidence of anxiety or depression Pupils are equal and reactive to accommodation. Extra-ocular movements, visual moreira to confrontation, facial sensorimotor, tongue, palate, sternocleidomastoid testing, hearing to finger rub testing, and bilateral shoulder shrug are all intact. Sensation is intact to light touch in all extremities Strength normal major flexion and extension groups all extremities Steve's absent bilaterally No ankle clonus Plantar responses absent bilateral Fine motor movements intact upper extremities Laboratory Laboratory Tests Test 09/18/17 07:00 09/18/17 09:50 Erythrocyte Sedimentation Rate 18 Blood Urea Nitrogen 7 Creatinine 0.68 Random Glucose 118 Calcium Level 8.5 Sodium Level 143 Potassium Level 3.6 Chloride Level 111 Carbon Dioxide Level 24.8 Anion Gap 7 Estimat Glomerular Filtration Rate 84 Total Creatine Kinase 383 Creatine Kinase MB 4.0 Creatine Kinase MB % 1.0 Ammonia 25 Folate 16.9 Rheumatoid Factor Screen NEGATIVE Rheumatoid Factor Titer Date/Time Source Procedure Growth Status 09/16/17 21:30 Urine Clean Catch Urine Culture - Preliminary <10,000 CFU/ML GRAM NEGATIVE DIANA Resulted Result Diagram: 09/17/17 0640 09/18/17 0700 Imaging 09/17/2017 MRI of the brain and cervical spine images reviewed by the undersigned. There is moderately severe diffuse ventriculomegaly which appears somewhat out of proportion to the otherwise moderate degree of surrounding atrophy. Moderate periventricular ischemic changes. No midline shift. Carotid Artery Ultrasound 09/18/17 0000 Signed Impressions: CONCLUSION: 1. Mild atherosclerotic changes at both carotid bifurcations. 2. No focal high-grade or hemodynamically significant stenosis. Cervical Spine MRI 09/17/17 184 Signed Impressions: CONCLUSION: 1. Degenerative disc disease and facet arthropathy 2. No evidence of focal disc herniation or acute bony abnormality. 3. Mild degenerative listhesis at C2-3 and C6-7. 4. Mild to moderate bilateral foraminal stenosis at C5-6. Brain MRI 09/17/17 0000 Signed Impressions: CONCLUSION: 1. Ventriculomegaly with mild to moderate cerebral white matter disease most c haracteristic of central atrophy with chronic ischemic white matter changes. 2. No evidence of acute infarct, hemorrhage, mass or edema. Hip and Pelvis X-Ray 09/16/172124 Signed Impressions: CONCLUSION: Moderate osteoarthritis. No acute fracture identified Head CT 09/16/172124 Signed Impressions: CONCLUSION: 1. Cortical volume loss with ventricular prominence. Mild chronic white matter ischemic changes. No acute findings. Chest X-Ray 09/16/172124 Signed Impressions: CONCLUSION: Cardiomegaly. Minimal basilar dependent atelectasis. Assessment and Plan Assessment and Plan Impression: 1. Patient presents with triad of memory loss, gait difficulty, urinary incontinence which along with significant ventriculomegaly on MRI brain is consistent with normal pressure hydrocephalus. However the patient likely has a underlying dementia given the degree of confusion. 2. History of multiple syncopal episodes 3. Hypertension Recommendations: The findings were discussed with the patient's grandson. Options of conservative treatment and observation versus temporary lumbar subarachnoid drain placement versus proceeding with lumboperitoneal shunt were all fully discussed along with prognosis, risks and possible complications. He is indicated that he will discuss the situation further with other family members and will let us know how they wish to proceed. I advised him that there may be underlying dementia contributing to her memory loss, which may be less likely to improve with shunt placement. If the family wishes to proceed, a temporary lumbar subarachnoid drain placement to help determine the effectiveness of a shunt placement would be appropriate. Benny Ayala MD September 18, 2017 12:18
[2017-09-18 13:01] LABS: HEMOGLOBIN A1C 5.9 % (4.3-6.0)
--- NOTE | 2017-09-18 18:17 | RADRPT ---
EXAM DATE: 09/18/2017 6:13 PM EDT AGE/SEX: 77 years / Female INDICATIONS: Bilateral leg swelling. CLINICAL DATA: This is the patient's initial encounter. Patient reports that signs and symptoms have been present for 1 day and indicates a pain score of 0/10. MEDICAL/SURGICAL HISTORY: Hypercholesterolemia. Hypertension. . COMPARISON: None. TECHNIQUE: Venous ultrasound of both lower extremities was performed from the inguinal ligament to t he proximal calf. Real-time, color Doppler and spectral tracing, compression and augmentation techni ques were used. FINDINGS: Right Leg: There is normal compressibility of the deep venous system from the inguinal region to the proximal calf. No echogenic clot is seen in the lumen of the common femoral, femoral, popliteal, an d posterior tibial veins. There is a normal response of the venous system to proximal and distal aug mentation and respiration. Left Leg: There is normal compressibility of the deep venous system from the inguinal region to the proximal calf. No echogenic clot is seen in the lumen of the common femoral, femoral, popliteal, and posterior tibial veins. There is a normal response of the venous system to proximal and distal augm entation and respiration. CONCLUSION: 1. The study is negative for bilateral lower extremity deep venous thrombosis. Electronically signed by: Kalin Escoto MD 09/18/2017 6:16 PM EDT
[2017-09-19] VITALS (9 sets, daily range): BP systolic 132–171; BP diastolic 65–80; PULSE 72–90; RESP 17–20; TEMP 96.8–98.5; O2SAT 93–97
[2017-09-19] MEDS: PENTOXIFYLLINE 400 MG CONTROLLED RELEASE TAB PO SCH ×3 (05:43→20:22)
[2017-09-19] MEDS: INSULIN ASPART SUPPLEMENTAL SCALE SQ SCH (08:00)
[2017-09-19] MEDS: DOCUSATE SODIUM 50 MG/SENNA 8.6 MG TAB PO SCH ×2 (08:07→20:22)
[2017-09-19] MEDS: SODIUM CHLORIDE 0.9% FLUSH 10 ML FLUSH IV FLUSH SCH ×2 (08:08→20:22)
[2017-09-19] MEDS: ATORVASTATIN 40 MG TAB PO SCH (08:08)
[2017-09-19] MEDS: HEPARIN SODIUM - SQ 10,000 UNITS/ML VIAL SQ SCH (08:08)
[2017-09-19] MEDS: CHOLECALCIFEROL (VIT D3) 1000 UNIT TAB PO SCH (08:08)
[2017-09-19] MEDS: amLODIPine BESYLATE 5 MG TAB PO SCH (08:08)
[2017-09-19] MEDS: LISINOPRIL 20 MG TAB PO SCH (08:08)
--- NOTE | 2017-09-19 09:07 | HHI.PR ---
Subjective Remarks Follow-up on patient with syncopal episode, closed head injury. Patient seen and examined. Patient reports that she slept like log. She denies any new medical complaints. Denies any dizziness headache or vision changes. Denies any fever or chills. Denies any chest pain or shortness of breath. She states her urinary continence has improved. She denies any complaints of diarrhea or constipation. Patient remains very unsteady on her feet. She continues to be confused oriented to self and place. Lengthy discussion with patient and son and [id number] at the bedside yesterday regarding possible diagnosis of normal pressure hydrocephalus and proposed [employer]ET[employer] COORDINATOR shunt placement. They are interested in proceeding forward but would like to have a conversation directly with Dr. Ayala. Discussed with nursing staff. Objective Vitals Vital Signs Date Time Temp Pulse Resp B/P (MAP) Pulse Ox O2 Delivery O2 Flow Rate FiO2 09/19/17 08:00 98.2 77 20 148/80 (102) 94 09/19/17 07:37 95 21 09/19/17 04:44 97.9 72 20 132/73 (92) 93 09/19/17 00:20 97.8 79 20 147/74 (98) 95 09/18/17 20:18 97.1 88 20 200/91 (127) 94 09/18/17 19:49 21 09/18/17 16:48 85 20 96 160/90 (113) 09/18/17 15:10 105 09/18/17 12:07 96.3 77 18 157/85 (109) 96 190/89 (122) 200/90 (126) 09/18/17 12:05 78 09/18/17 11:28 169/78 (108) 09/18/17 09:11 82 20 181/80 (113) 95 I/O 09/18/17 09/18/17 09/18/17 09/19/17 09/19/17 09/19/17 07:00 15:00 23:00 07:00 15:00 23:00 Intake Total 700 ml 450 ml 280 ml Balance 700 ml 450 ml 280 ml Intake Oral 500 ml 450 ml 280 ml IV Total 200 ml # Voids 3 2 1 # Bowel Movements 1 Result Diagram: 09/17/17 0640 09/18/17 0700 Imaging Last Impressions Lower Extremity Ultrasound 5/27/18 0000 Signed Impressions: CONCLUSION: 1. The study is negative for bilateral lower extremity deep venous thrombosis. Carotid Artery Ultrasound 09/18/17 Signed Impressions: CONCLUSION: 1. Mild atherosclerotic changes at both carotid bifurcations. 2. No focal high-grade or hemodynamically significant stenosis. Cervical Spine MRI 09/17/171844 Signed Impressions: CONCLUSION: 1. Degenerative disc disease and facet arthropathy 2. No evidence of focal disc herniation or acute bony abnormality. 3. Mild degenerative listhesis at C2-3 and C6-7. 4. Mild to moderate bilateral foraminal stenosis at C5-6. Brain MRI 09/17/17 Signed Impressions: CONCLUSION: 1. Ventriculomegaly with mild to moderate cerebral white matter disease most c haracteristic of central atrophy with chronic ischemic white matter changes. 2. No evidence of acute infarct, hemorrhage, mass or edema. Hip and Pelvis X-Ray 09/16/172124 Signed Impressions: CONCLUSION: Moderate osteoarthritis. No acute fracture identified Head CT 09/16/172124 Signed Impressions: CONCLUSION: 1. Cortical volume loss with ventricular prominence. Mild chronic white matter ischemic changes. No acute findings. Chest X-Ray 09/16/172124 Signed Impressions: CONCLUSION: Cardiomegaly. Minimal basilar dependent atelectasis. Objective Remarks GENERAL: This is a well-developed well-nourished elderly female patient, in no acute distress. Awake and alert. Sitting on side of bed. SKIN: Warm and dry. No generalized rash. HEENT: Normocephalic. PERRLA, EOMI. No scleral icterus or conjunctival pallor. No lid lag or facial droop. Airway patent. MMM. CARDIOVASCULAR: Regular rate and rhythm. No obvious murmurs to auscultation. No chest tenderness to palpation. RESPIRATORY: Nonlabored. Clear to auscultation. Breath sounds equal bilaterally. No obvious rhonchi or wheezing. GASTROINTESTINAL: Abdomen soft, non-tender, nondistended. BS normal. MUSCULOSKELETAL: Extremities without clubbing, cyanosis, or edema. No obvious deformities. NEUROLOGICAL: Awake, alert and oriented x 2. Moving both upper and lower extremities spontaneously. No focal neurologic deficits. Normal speech. PSYCHIATRIC: Calm and cooperative. Appropriate mood and affect. Procedures None A/P Problem List: (1) Fall ICD Code: W19.XXXA - Unspecified fall, initial encounter (2) UTI (urinary tract infection) ICD Code: N39.0 - Urinary tract infection, site not specified (3) Rhabdomyolysis ICD Code: M62.82 - Rhabdomyolysis Assessment and Plan 77-year-old female with past medical history significant for hypertension with previous history of CVA presents to [facility] post syncopal episode. Possible syncopal episode at home, unwitnessed fall with closed head injury Suspected NPH with ventriculomegaly on MRI, unsteady gait with frequent falls at home, urinary incontinence and dementia Neurology and Neurosurgery following Plan for [employer]ORD[employer]ATOR shunt in am -awaiting 2D echo -Fall and seizure precautions -Holter monitor -Continuous cardiac telemetry -PT and OT recommend rehab at discharge Rhabdomyolysis Patient found down on the ground for unknown length of time CK trending down s/p IVF -encourage po intake -Continue to monitor kidney function closely Hypertension -Continue on lisinopril 20 mg daily and Norvasc 5mg daily -Clonidine prn with parameters -Continue to monitor BP and adjust treatment accordingly Hyperglycemia No reported history of diabetes A1c 5.9 Blood sugars have been well controlled -discontinue accucheks and ISS Vitamin D deficiency with level of 18.6 -Continue oral vitamin D supplementation 2000 units daily -Patient will need to follow-up with PCP in 6-8 weeks have vitamin D level rechecked DVT prophylaxis -Heparin sq Discharge Planning Not ready for discharge. Plan for [employer] COORDINATOR shunt tomorrow. Jo Rubin September 19, 2017 09:07
--- NOTE | 2017-09-19 10:36 | HHI.PR ---
Objective Vital Signs Date Time Temp Pulse Resp B/P (MAP) Pulse Ox O2 Delivery O2 Flow Rate FiO2 09/19/17 08:00 98.2 77 20 148/80 (102) 94 09/19/17 07:37 95 21 09/19/17 04:44 97.9 72 20 132/73 (92) 93 09/19/17 00:20 97.8 79 20 147/74 (98) 95 09/18/17 20:18 97.1 88 20 200/91 (127) 94 09/18/17 19:49 21 09/18/17 16:48 85 20 96 160/90 (113) 09/18/17 15:10 105 09/18/17 12:07 96.3 77 18 157/85 (109) 96 190/89 (122) 200/90 (126) 09/18/17 12:05 78 09/18/17 11:28 169/78 (108) I/O 09/18/17 09/18/17 09/18/17 09/19/17 09/19/17 09/19/17 07:00 15:00 23:00 07:00 15:00 23:00 Intake Total 700 ml 450 ml 280 ml Balance 700 ml 450 ml 280 ml Intake Oral 500 ml 450 ml 280 ml IV Total 200 ml # Voids 3 2 1 # Bowel Movements 1 Result Diagram: 09/17/17 0640 09/18/17 0700 Objective Remarks awake aler tnot mo or yr moves well but very small stepa dn dillon with turn nl tone no tremor can take larger steps incontinent urine in bed and notes hx of that 09/19/17 not yr awake alert Assessment and Plan Assessment and Plan imp dementia small steps incont and large vents prob nph will dom, lumbar drain nusu oob PT labs mri c spine neg off asa no cva fu eeg echo us 09/19/17 nph us neg i dw grandson we should set up lumbar drain for am if son agrees dc hep one dose ceftriaxone with ua just to be sure if doing drain Ovidio Queen MD September 19, 2017 10:36
[2017-09-19] MEDS ORDERED: cefTRIAXone INJ 1,000 MG in SODIUM CHLORIDE 0.9% INJ 100 ML IV ONE (10:45)
--- NOTE | 2017-09-19 18:08 | ECHRPT ---
Indication: CONCLUSIONS Normal left ventricular size. Wall thickness is normal. The left ventricular systolic function is low normal with an estimated ejection fraction in the rang e of 50- 55%. Mitral annular calcification is present. Aortic valve sclerosis is present. BP: / HR: Rhythm: MEASUREMENTS (Male / Female) Normal Values Technical Quality: 2D ECHO LV Diastolic Diameter PLAX 4.9 cm 4.2 - 5.9 / 3.9 - 5.3 cm LV Systolic Diameter PLAX 3.7 cm IVS Diastolic Thickness 1.0 cm 0.6 - 1.0 / 0.6 - 0.9 cm LVPW Diastolic Thickness 0.7 cm 0.6 - 1.0 / 0.6 - 0.9 cm LV Relative Wall Thickness 0.3 RV Internal Dim ED PLAX 2.2 cm M-MODE Aortic Root Diameter MM 3.5 cm AV Cusp Separation MM 2.0 cm DOPPLER Mitral E Point Velocity 54.3 cm/s Mitral A Point Velocity 92.3 cm/s Mitral E to A Ratio 0.6 TR Peak Velocity 197.0 cm/s TR Peak Gradient 15.5 mmHg FINDINGS LEFT VENTRICLE Normal left ventricular size. Wall thickness is normal. The left ventricular systolic function is low normal with an estimated ejection fraction in the rang e of 50- 55%. RIGHT VENTRICLE Normal right ventricular size and systolic function. LEFT ATRIUM The left atrial size is normal. RIGHT ATRIUM The right atrial size is normal. ATRIAL SEPTUM Normal atrial septal thickness without atrial level shunting by limited color doppler interrogation. AORTA The aortic root and proximal ascending aorta are normal in size on limited imaging. MITRAL VALVE Mitral annular calcification is present. AORTIC VALVE Aortic valve sclerosis is present. TRICUSPID VALVE Structurally normal tricuspid valve. No tricuspid valve stenosis or regurgitation. PULMONARY VALVE The pulmonary valve is not well visualized. VESSELS The inferior vena cava is normal in size. PERICARDIUM No pericardial effusion. James Ford MD, FACC, [facility] [place] (Electronically Signed) Final Date:19 Sep 2017 18:07
[2017-09-20] VITALS (13 sets, daily range): BP systolic 141–178; BP diastolic 68–84; PULSE 71–122; RESP 17–21; TEMP 97.6–98.5; O2SAT 92–97
[2017-09-20] MEDS: PENTOXIFYLLINE 400 MG CONTROLLED RELEASE TAB PO SCH ×3 (05:45→21:45)
[2017-09-20] MEDS: LISINOPRIL 20 MG TAB PO SCH (08:31)
[2017-09-20] MEDS: CHOLECALCIFEROL (VIT D3) 1000 UNIT TAB PO SCH (08:31)
[2017-09-20] MEDS: DOCUSATE SODIUM 50 MG/SENNA 8.6 MG TAB PO SCH ×2 (08:31→21:45)
[2017-09-20] MEDS: amLODIPine BESYLATE 5 MG TAB PO SCH (08:31)
[2017-09-20] MEDS: ATORVASTATIN 40 MG TAB PO SCH (08:31)
[2017-09-20] MEDS: SODIUM CHLORIDE 0.9% FLUSH 10 ML FLUSH IV FLUSH SCH ×2 (08:34→21:43)
--- NOTE | 2017-09-20 08:52 | HHI.PR ---
Objective Vital Signs Date Time Temp Pulse Resp B/P (MAP) Pulse Ox O2 Delivery O2 Flow Rate FiO2 09/20/17 07:54 98.1 84 20 141/74 (96) 93 150/79 (102) 147/78 (101) 09/20/17 07:17 92 09/20/17 04:12 98.5 84 17 178/81 (113) 93 09/19/17 23:00 73 09/19/17 22:56 98.4 80 17 171/71 (104) 93 09/19/17 20:44 97 21 09/19/17 19:44 98.5 90 17 142/65 (90) 94 09/19/17 17:04 96.8 78 20 135/74 (94) 96 I/O 09/19/17 09/19/17 09/19/17 09/20/17 09/20/17 09/20/17 07:00 15:00 23:00 07:00 15:00 23:00 Intake Total 280 ml 100 ml 360 ml 360 ml Balance 280 ml 100 ml 360 ml 360 ml Intake Oral 280 ml 360 ml 360 ml IV Total 100 ml # Voids 1 2 3 Result Diagram: 09/17/17 0640 09/18/17 0700 Objective Remarks awake aler tnot mo or yr moves well but very small stepa dn dillon with turn nl tone no tremor can take larger steps incontinent urine in bed and notes hx of that 09/19/17 not yr awake alert 09/20/17 awake alert not yr gait medium stride still 4 steps to turn walking some better Assessment and Plan Assessment and Plan imp dementia small steps incont and large vents prob nph will dom, lumbar drain nusu oob PT labs mri c spine neg off asa no cva fu eeg echo us 09/19/17 nph us neg i dw grandson we should set up lumbar drain for am if son agrees dc hep one dose ceftriaxone with ua just to be sure if doing drain 09/20/17 gait some better have PT walk b4 drain Ovidio Queen MD September 20, 2017 08:52
--- NOTE | 2017-09-20 09:35 | HHI.PR ---
Subjective Remarks Follow up NPH, syncopal episode. Patient states that she is anxious about the procedure. She has pain "all over", but not worse today. No chest pain, dyspnea , nausea, vomiting. Objective Vitals Vital Signs Date Time Temp Pulse Resp B/P (MAP) Pulse Ox O2 Delivery O2 Flow Rate FiO2 09/20/17 07:54 98.1 84 20 141/74 (96) 93 150/79 (102) 147/78 (101) 09/20/17 07:17 92 09/20/17 04:12 98.5 84 17 178/81 (113) 93 09/19/17 23:00 73 09/19/17 22:56 98.4 80 17 171/71 (104) 93 09/19/17 20:44 97 21 09/19/17 19:44 98.5 90 17 142/65 (90) 94 09/19/17 17:04 96.8 78 20 135/74 (94) 96 I/O 09/19/17 09/19/17 09/19/17 09/20/17 09/20/17 09/20/17 07:00 15:00 23:00 07:00 15:00 23:00 Intake Total 280 ml 100 ml 360 ml 360 ml Balance 280 ml 100 ml 360 ml 360 ml Intake Oral 280 ml 360 ml 360 ml IV Total 100 ml # Voids 1 2 3 Result Diagram: 09/17/17 0640 09/18/17 0700 Imaging Last Impressions Lower Extremity Ultrasound 09/18/17 0000 Signed Impressions: CONCLUSION: 1. The study is negative for bilateral lower extremity deep venous thrombosis. Carotid Artery Ultrasound 09/18/17 0000 Signed Impressions: CONCLUSION: 1. Mild atherosclerotic changes at both carotid bifurcations. 2. No focal high-grade or hemodynamically significant stenosis. Cervical Spine MRI 09/17/17 1845 Signed Impressions: CONCLUSION: 1. Degenerative disc disease and facet arthropathy 2. No evidence of focal disc herniation or acute bony abnormality. 3. Mild degenerative listhesis at C2-3 and C6-7. 4. Mild to moderate bilateral foraminal stenosis at C5-6. Brain MRI 09/17/17 0000 Signed Impressions: CONCLUSION: 1. Ventriculomegaly with mild to moderate cerebral white matter disease most c haracteristic of central atrophy with chronic ischemic white matter changes. 2. No evidence of acute infarct, hemorrhage, mass or edema. Hip and Pelvis X-Ray 09/16/172124 Signed Impressions: CONCLUSION: Moderate osteoarthritis. No acute fracture identified Head CT 09/16/172124 Signed Impressions: CONCLUSION: 1. Cortical volume loss with ventricular prominence. Mild chronic white matter ischemic changes. No acute findings. Chest X-Ray 09/16/172124 Signed Impressions: CONCLUSION: Cardiomegaly. Minimal basilar dependent atelectasis. Objective Remarks General: Elderly female in no acute distress. HEENT: Contusion on left forehead. Heart: Regular rate and rhythm. No murmur. Lungs: Clear to auscultation bilaterally. No wheezes, rales, or rhonchi. Breathing is nonlabored. Abdomen: Soft, nontender, nondistended. Extremities: No lower extremity edema. Psych: Alert and oriented. Answers questions appropriately. Neuro: Normal speech. No focal deficits noted. Procedures None Urinary Catheter: No Vascular Central Line Catheter: No A/P Problem List: (1) Fall ICD Code: W19.XXXA - Unspecified fall, initial encounter (2) UTI (urinary tract infection) ICD Code: N39.0 - Urinary tract infection, site not specified (3) Rhabdomyolysis ICD Code: M62.82 - Rhabdomyolysis Assessment and Plan 1. Apparent syncopal episode at home, unwitnessed fall with closed head injury : Continue physical therapy. Patient feels that her ambulation is improving. 2. Suspected NPH: MRI shows ventriculomegaly. Patient has unsteady gait with frequent falls at home. She also has urinary incontinence and dementia. Appreciate neurology, neurosurgery recommendations. Lumbar drain to be placed by interventional radiology today. Fall precautions, seizure precautions. Continue cardiac telemetry. 3. Rhabdomyolysis: Improved. 4. Hypertension: Continue lisinopril, Norvasc. Clonidine as needed. 5. Hyperglycemia: Resolved. No reported history of diabetes. A1c 5.9. 6. Vitamin D deficiency: Continue oral vitamin D supplementation. Follow-up as outpatient. 7. DVT prophylaxis: Heparin on hold for procedure. Cecil Tatum MD September 20, 2017 09:35
[2017-09-20] MEDS ORDERED: MIDAZOLAM HCL 2 MG/2 ML VIAL ONE (10:30)
[2017-09-20] MEDS ORDERED: ceFAZolin 2 GM PREMIX 50 ML ONE (10:48)
--- NOTE | 2017-09-20 11:04 | PD.RAD ---
Post Procedure Progress Note Pre Procedure Diagnosis: (1) Fall (2) Syncope Post Procedure Diagnosis: (1) Fall Procedure Date: September 20, 2017 Supervising Radiologist: Saman Prithcard Proceduralist/Assist: RT Ulises(R), Other Anesthesia: Conscious Sedation Plan of Activity Patient to Unit: ROPU Patient Condition: Good See PACS Report for procedural detail/treatment Saman Pritchard MD September 20, 2017 11:04
[2017-09-21] VITALS (12 sets, daily range): BP systolic 128–164; BP diastolic 60–77; PULSE 70–88; RESP 18–20; TEMP 97.3–98.5; O2SAT 91–95
[2017-09-21] MEDS: PENTOXIFYLLINE 400 MG CONTROLLED RELEASE TAB PO SCH ×3 (05:53→21:01)
--- NOTE | 2017-09-21 07:57 | HHI.PR ---
Objective Vital Signs Date Time Temp Pulse Resp B/P (MAP) Pulse Ox O2 Delivery O2 Flow Rate FiO2 09/21/17 04:00 72 09/21/17 04:00 164/74 (104) 09/21/17 04:00 97.9 72 20 154/72 (99) 94 09/21/17 04:00 159/74 (102) 09/21/17 00:00 70 09/21/17 00:00 98.2 82 20 155/71 (99) 95 09/20/17 22:48 77 09/20/17 17:40 96 21 09/20/17 16:30 122 09/20/17 16:00 97.8 84 21 143/72 (95) 97 09/20/17 14:54 98.0 83 20 145/74 (97) 95 09/20/17 12:25 82 18 149/68 (95) 94 09/20/17 11:55 81 20 148/71 (96) 94 09/20/17 11:25 71 20 149/75 (99) 96 09/20/17 11:10 97.6 83 18 148/84 (105) 92 09/20/17 08:08 96 21 I/O 09/20/17 09/20/17 09/20/17 09/21/17 09/21/17 09/21/17 07:00 15:00 23:00 07:00 15:00 23:00 Intake Total 360 ml 200 ml 220 ml Output Total 60 ml Balance 360 ml 200 ml 160 ml Intake Oral 360 ml 200 ml 220 ml Drainage Total 60 ml # Voids 3 1 2 # Bowel Movements 1 0 Result Diagram: 09/17/17 0640 09/18/17 0700 Objective Remarks awake aler tnot mo or yr moves well but very small stepa dn dillon with turn nl tone no tremor can take larger steps incontinent urine in bed and notes hx of that 09/19/17 not yr awake alert 09/20/17 awake alert not yr gait medium stride still 4 steps to turn walking some better 09/21/17 maybe turns a little better still shorter stride -- Assessment and Plan Assessment and Plan imp dementia small steps incont and large vents prob nph will dom, lumbar drain nusu oob PT labs mri c spine neg off asa no cva fu eeg echo us 09/19/17 nph us neg i dw aida we should set up lumbar drain for am if son agrees dc hep one dose ceftriaxone with ua just to be sure if doing drain 09/20/17 gait some better have PT walk b4 drain 09/21/17 no major change although was doing a little better b4 drain maybe turning a bit better could consider shunt on basis of dementia check tau and ab42 csf for ad Ovidio Queen MD September 21, 2017 07:57
[2017-09-21 08:25] LABS: AUTOMATED NEUTROPHIL # 5.8 TH/MM3 (1.8-7.7); BASOPHIL # 0.1 TH/MM3 (0-0.2); BASOPHIL % 1.1 % (0.0-2.0); EOSINOPHIL # 0.3 TH/MM3 (0-0.4); EOSINOPHIL % 2.9 % (0.0-4.0); HEMATOCRIT 44.5 % (35.0-46.0); HEMOGLOBIN 15.7 GM/DL (11.6-15.3); LYMPH % 26.3 % (9.0-44.0); LYMPHOCYTE # 2.5 TH/MM3 (1.0-4.8); MEAN CELL VOLUME 84.8 FL (80.0-100.0); MEAN CORPUSCULAR HEMOGLOBIN 29.9 PG (27.0-34.0); MEAN CORPUSCULAR HGB CONC 35.2 % (32.0-36.0); MEAN PLATELET VOLUME 8.5 FL (7.0-11.0); MONOCYTE # 0.8 TH/MM3 (0-0.9); NEUT % 61.7 % (16.0-70.0); PLATELET COUNT 314 TH/MM3 (150-450); RED BLOOD COUNT 5.25 MIL/MM3 (4.00-5.30); RED CELL DISTRIBUTION WIDTH 13.8 % (11.6-17.2); WHITE BLOOD COUNT 9.4 TH/MM3 (4.0-11.0)
[2017-09-21] MEDS: CHOLECALCIFEROL (VIT D3) 1000 UNIT TAB PO SCH (08:41)
[2017-09-21] MEDS: LISINOPRIL 20 MG TAB PO SCH (08:41)
[2017-09-21] MEDS: amLODIPine BESYLATE 5 MG TAB PO SCH (08:41)
[2017-09-21] MEDS: ATORVASTATIN 40 MG TAB PO SCH (08:41)
[2017-09-21] MEDS: DOCUSATE SODIUM 50 MG/SENNA 8.6 MG TAB PO SCH ×2 (08:42→21:00)
[2017-09-21 08:57] LABS: BICARBONATE 23.8 MEQ/L (21.0-32.0); CALCIUM 9.2 MG/DL (8.5-10.1); CREATININE 0.77 MG/DL (0.50-1.00)
[2017-09-21] MEDS: SODIUM CHLORIDE 0.9% FLUSH 10 ML FLUSH IV FLUSH SCH ×2 (09:00→21:01)
--- NOTE | 2017-09-21 10:36 | HHI.PR ---
Subjective Remarks No complaints of pain today. Patient is doing well status post lumbar drain placement. Option for shunt being considered. Objective Vital Signs Date Time Temp Pulse Resp B/P (MAP) Pulse Ox O2 Delivery O2 Flow Rate FiO2 09/21/17 09:59 95 21 09/21/17 08:06 97.3 87 20 128/77 (94) 91 09/21/17 07:30 76 09/21/17 04:00 72 09/21/17 04:00 164/74 (104) 09/21/17 04:00 97.9 72 20 154/72 (99) 94 09/21/17 04:00 159/74 (102) 09/21/17 00:00 70 09/21/17 00:00 98.2 82 20 155/71 (99) 95 09/20/17 22:48 77 09/20/17 17:40 96 21 09/20/17 16:30 122 09/20/17 16:00 97.8 84 21 143/72 (95) 97 09/20/17 14:54 98.0 83 20 145/74 (97) 95 09/20/17 12:25 82 18 149/68 (95) 94 09/20/17 11:55 81 20 148/71 (96) 94 09/20/17 11:25 71 20 149/75 (99) 96 09/20/17 11:10 97.6 83 18 148/84 (105) 92 I/O 09/20/17 09/20/17 09/20/17 09/21/17 09/21/17 09/21/17 07:00 15:00 23:00 07:00 15:00 23:00 Intake Total 360 ml 200 ml 220 ml Output Total 60 ml Balance 360 ml 200 ml 160 ml Intake Oral 360 ml 200 ml 220 ml Drainage Total 60 ml # Voids 3 1 2 # Bowel Movements 1 0 Result Diagram: 09/21/1730 09/21/17 0730 Objective Remarks GENERAL: NAD, A&Ox3 HEAD: Normocephalic. NECK: Supple, trachea midline. No lymphadenopathy. EYES: No scleral icterus. No injection or drainage. CARDIOVASCULAR: Regular rate and rhythm without murmurs, gallops, or rubs. RESPIRATORY: Breath sounds equal bilaterally. No accessory muscle use. GASTROINTESTINAL: Abdomen soft, non-tender, nondistended. MUSCULOSKELETAL: No cyanosis, or edema. Lumbar drain is in place. SKIN: Warm and dry. NEURO: No focal neurological deficitis. A/P Problem List: (1) Normal pressure hydrocephalus ICD Code: G91.2 - (Idiopathic) normal pressure hydrocephalus (2) Fall ICD Code: W19.XXXA - Unspecified fall, initial encounter (3) UTI (urinary tract infection) ICD Code: N39.0 - Urinary tract infection, site not specified Assessment and Plan 77-year-old female admitted with syncopal episodes discovered to be related to normal pressure hydrocephalus Syncope Normal pressure hydrocephalus Lumbar drain is now in place Patient is return to baseline status Neurology following Neurosurgery following Continue to maintain lumbar drain Determination of need for shunt referred to neurology and neurosurgery Rhabdomyolysis Result Hypertension Continue baseline treatment Follow blood pressures Adjust treatments as needed Continue lisinopril Continue Norvasc Continue clonidine as needed Chronic vitamin D deficiency Vitamin D supplementation continue DVT prophylaxis SCDs Caution with blood thinners given procedure Flip Marin MD September 21, 2017 10:36
--- NOTE | 2017-09-21 18:07 | RADRPT ---
EXAM DATE: 09/20/2017 11:36 AM EDT AGE/SEX: 77 years / Female INDICATIONS: Patient presents with history of recurrent falls in need of lumbar drain. CLINICAL DATA: This is the patient's initial encounter. Patient reports that signs and symptoms have been present for 4 - 6 days and indicates a pain score of 0/10. Location: , Laterality: MEDICAL/SURGICAL HISTORY: Hypertension. h/o CVA None. None COMPARISON: No prior [place] exams available for comparison. FLUORO TIME (min): 0.35 IMAGE SERIES: 1 ACCESS SITE: L3-4 SEDATION TIME (min): 30 LUMBAR PUNCTURE TIME: 10:52 hours . MEDICATION(S): 1.5mg midazolam (Versed) IV 75mcg fentanyl (Sublimaze) IV DEVICE(S): 14 [place] lumbar drain catheter 14F needle . . PROCEDURE: 1. Fluoroscopically guided lumbar drain placement. 2. Conscious sedation with continuous EKG and oximetry monitoring. The risks, benefits and alternatives to the procedure were explained and verbal and written consent w as obtained. The site was prepped in sterile fashion. Full sterile technique was used, including ca p, mask, sterile gloves and gown and a large sterile sheet. Hand hygiene and 2% chlorhexidine and/or betadine/alcohol prep was utilized per protocol for cutaneous antisepsis. The skin and subcutaneous tissues were infiltrated with local anesthetic solution. With fluoroscopic guidance the lumbar thecal sac was punctured with a 14 gauge Touhy needle and a lum bar drain was placed with its tip at the level as described above and the catheter was sutured in janna ce. CSF was identified returning from the catheter at the termination of the procedure. Conscious sedation was performed with the prescribed dosages and duration as above in the presence of an independent trained radiology nurse to assist in the monitoring of the patient. EKG and oximetry remained stable throughout the procedure. The patient tolerated the procedure well and there were n o complications. The patient was sent to post anesthesia recovery in stable condition. CONCLUSION: 1. Uncomplicated lumbar drain placement as above. Electronically signed by: Saman Pritchard MD 09/21/2017 6:06 PM EDT
--- NOTE | 2017-09-21 23:23 | HHI.NSPN ---
History Chief Complaint: No complaints Interval History 77-year-old female with history of progressive gait difficulty, memory loss, loss of bladder control. Lumbar subarachnoid drain in place for possible NPH 09/21/2017: No complaint of headache. No nausea. Lumbar drain in place. Exam Results Vital Signs Date Time Temp Pulse Resp B/P (MAP) Pulse Ox O2 Delivery O2 Flow Rate FiO2 09/21/17 20:00 98.5 85 18 138/66 (90) 93 09/21/17 17:54 21 09/17/17 08:44 Room Air Intake and Output 09/21/17 09/21/17 09/22/17 08:00 16:00 00:00 Intake Total 220 ml Output Total 60 ml 60 ml Balance 160 ml -60 ml Physical Examination 09/21/2017 examination reveals a patient awake and alert Speech clear and appropriate Mild to moderate recent greater than remote memory loss. Follow simple commands well Extraocular movements intact Sensation intact all extremities Strength normal major flexion and extension groups all extremities Angel's response absent bilateral No ankle clonus Lumbar drain in place with slightly yellow CSF output. Medical Decision Making Impression and Plan Impression: Tolerating lumbar subarachnoid drain. Plan: Continue subarachnoid drain Continue physical therapy Plan discussed with patient. Benny Ayala MD September 21, 2017 23:23
[2017-09-22] VITALS (10 sets, daily range): BP systolic 131–142; BP diastolic 61–73; PULSE 71–89; RESP 18–20; TEMP 97.5–98.1; O2SAT 92–97
[2017-09-22 05:08] LABS: AUTOMATED NEUTROPHIL # 5.6 TH/MM3 (1.8-7.7); BASOPHIL # 0.1 TH/MM3 (0-0.2); BASOPHIL % 1.1 % (0.0-2.0); EOSINOPHIL # 0.3 TH/MM3 (0-0.4); EOSINOPHIL % 3.2 % (0.0-4.0); HEMATOCRIT 41.9 % (35.0-46.0); HEMOGLOBIN 14.7 GM/DL (11.6-15.3); LYMPH % 25.3 % (9.0-44.0); LYMPHOCYTE # 2.3 TH/MM3 (1.0-4.8); MEAN CELL VOLUME 85.7 FL (80.0-100.0); MEAN CORPUSCULAR HGB CONC 35.1 % (32.0-36.0); MEAN PLATELET VOLUME 8.6 FL (7.0-11.0); MONO % 8.8 % (0.0-8.0); MONOCYTE # 0.8 TH/MM3 (0-0.9); NEUT % 61.6 % (16.0-70.0); PLATELET COUNT 281 TH/MM3 (150-450); RED BLOOD COUNT 4.89 MIL/MM3 (4.00-5.30); RED CELL DISTRIBUTION WIDTH 13.7 % (11.6-17.2); WHITE BLOOD COUNT 9.1 TH/MM3 (4.0-11.0)
[2017-09-22 05:24] LABS: ALBUMIN 3.2 GM/DL (3.4-5.0); AST (GOT) 38 U/L (15-37); BICARBONATE 23.6 MEQ/L (21.0-32.0); BLOOD UREA NITROGEN 12 MG/DL (7-18); CALCIUM 8.9 MG/DL (8.5-10.1); CHLORIDE 106 MEQ/L (98-107); GLOMERULAR FILTRATION RATE 70 ML/MIN (>89); GLUCOSE,RANDOM 121 MG/DL (74-106); SODIUM (NA) 141 MEQ/L (136-145)
[2017-09-22 05:25] LABS: ALT (GPT) 53 U/L (10-53)
[2017-09-22 05:27] LABS: ALKALINE PHOSPHATASE 144 U/L (45-117); TOTAL BILIRUBIN ADULT 0.6 MG/DL (0.2-1.0); TOTAL PROTEIN 7.7 GM/DL (6.4-8.2)
[2017-09-22] MEDS: PENTOXIFYLLINE 400 MG CONTROLLED RELEASE TAB PO SCH ×3 (05:42→20:29)
--- NOTE | 2017-09-22 08:16 | HHI.PR ---
Objective Vital Signs Date Time Temp Pulse Resp B/P (MAP) Pulse Ox O2 Delivery O2 Flow Rate FiO2 09/22/17 07:29 97.8 76 20 134/61 (85) 92 09/22/17 04:00 97.9 71 18 142/67 (92) 97 09/22/17 00:00 97.5 72 18 142/65 (90) 95 09/21/17 23:53 85 09/21/17 20:00 98.5 85 18 138/66 (90) 93 09/21/17 17:54 93 21 09/21/17 16:21 97.7 88 20 132/63 (86) 93 09/21/17 16:00 82 09/21/17 12:11 97.4 83 20 130/60 (83) 93 09/21/17 12:00 85 09/21/17 09:59 95 21 I/O 09/21/17 09/21/17 09/21/17 09/22/17 09/22/17 09/22/17 07:00 15:00 23:00 07:00 15:00 23:00 Intake Total 220 ml Output Total 60 ml 60 ml Balance 160 ml -60 ml Intake Oral 220 ml Drainage Total 60 ml 60 ml # Voids 2 5 1 # Bowel Movements 0 2 Result Diagram: 09/22/1739909/22/17399 Objective Remarks awake adelfo alexander mo or yr moves well but very small stepa dn dillon with turn nl tone no tremor can take larger steps incontinent urine in bed and notes hx of that 09/19/17 not yr awake alert 09/20/17 awake alert not yr gait medium stride still 4 steps to turn walking some better 09/21/17 maybe turns a little better still shorter stride - 09/22/17 still smaller steps some shuffle this am not mo or yr -- Assessment and Plan Assessment and Plan imp dementia small steps incont and large vents prob nph will dom, lumbar drain nusu oob PT labs mri c spine neg off asa no cva fu eeg echo us 09/19/17 nph us neg i dw grandson we should set up lumbar drain for am if son agrees dc hep one dose ceftriaxone with ua just to be sure if doing drain 09/20/17 gait some better have PT walk b4 drain 09/21/17 no major change although was doing a little better b4 drain maybe turning a bit better could consider shunt on basis of dementia check tau and ab42 csf for ad 09/21/17 i dont see huge change PT though better yest will defer to dr ramiro Queen,Ovidio Hooper MD September 22, 2017 08:16
[2017-09-22] MEDS: DOCUSATE SODIUM 50 MG/SENNA 8.6 MG TAB PO SCH ×2 (09:00→20:28)
[2017-09-22] MEDS: SODIUM CHLORIDE 0.9% FLUSH 10 ML FLUSH IV FLUSH SCH ×2 (09:00→20:28)
[2017-09-22] MEDS: LISINOPRIL 20 MG TAB PO SCH (09:29)
[2017-09-22] MEDS: CHOLECALCIFEROL (VIT D3) 1000 UNIT TAB PO SCH (09:29)
[2017-09-22] MEDS: ATORVASTATIN 40 MG TAB PO SCH (09:30)
[2017-09-22] MEDS: amLODIPine BESYLATE 5 MG TAB PO SCH (09:30)
[2017-09-22] MEDS ORDERED: POTASSIUM CHLORIDE 10 MEQ CONTROLLED RELEASE TAB PO ONE (09:30)
--- NOTE | 2017-09-22 11:38 | HHI.PR ---
Subjective Remarks Monitoring of lumbar drain ongoing. Determination for need of shunt in process. Patient has no complaints today. Objective Vital Signs Date Time Temp Pulse Resp B/P (MAP) Pulse Ox O2 Delivery O2 Flow Rate FiO2 09/22/17 07:29 97.8 76 20 134/61 (85) 92 09/22/17 04:00 97.9 71 18 142/67 (92) 97 09/22/17 00:00 97.5 72 18 142/65 (90) 95 09/21/17 23:53 85 09/21/17 20:00 98.5 85 18 138/66 (90) 93 09/21/17 17:54 93 21 09/21/17 16:21 97.7 88 20 132/63 (86) 93 09/21/17 16:00 82 09/21/17 12:11 97.4 83 20 130/60 (83) 93 09/21/17 12:00 85 I/O 09/21/17 09/21/17 09/21/17 09/22/17 09/22/17 09/22/17 07:00 15:00 23:00 07:00 15:00 23:00 Intake Total 220 ml Output Total 60 ml 60 ml Balance 160 ml -60 ml Intake Oral 220 ml Drainage Total 60 ml 60 ml # Voids 2 5 1 # Bowel Movements 0 2 Result Diagram: 09/22/17 0400 09/22/17 0400 Objective Remarks GENERAL: NAD, A&Ox3 HEAD: Normocephalic. NECK: Supple, trachea midline. No lymphadenopathy. EYES: No scleral icterus. No injection or drainage. CARDIOVASCULAR: Regular rate and rhythm without murmurs, gallops, or rubs. RESPIRATORY: Breath sounds equal bilaterally. No accessory muscle use. GASTROINTESTINAL: Abdomen soft, non-tender, nondistended. MUSCULOSKELETAL: No cyanosis, or edema. Lumbar drain is in place. SKIN: Warm and dry. NEURO: No focal neurological deficitis. A/P Problem List: (1) Normal pressure hydrocephalus ICD Code: G91.2 - (Idiopathic) normal pressure hydrocephalus (2) Fall ICD Code: W19.XXXA - Unspecified fall, initial encounter (3) UTI (urinary tract infection) ICD Code: N39.0 - Urinary tract infection, site not specified Assessment and Plan 77-year-old female admitted with syncopal episodes discovered to be related to normal pressure hydrocephalus Continue monitoring lumbar drain. Ongoing determination for need for shunt. Syncope Normal pressure hydrocephalus Lumbar drain is now in place Patient is return to baseline status Neurology following Neurosurgery following Continue to maintain lumbar drain Determination of need for shunt referred to neurology and neurosurgery Rhabdomyolysis Result Hypertension Continue baseline treatment Follow blood pressures Adjust treatments as needed Continue lisinopril Continue Norvasc Continue clonidine as needed Chronic vitamin D deficiency Vitamin D supplementation continue DVT prophylaxis SCDs Caution with blood thinners given procedure Flip Marin MD September 22, 2017 11:38
--- NOTE | 2017-09-22 19:44 | HHI.NSPN ---
History Chief Complaint: No complaints Interval History 77-year-old female with history of progressive gait difficulty, memory loss, loss of bladder control. Lumbar subarachnoid drain in place for possible NPH 09/21/2017: No complaint of headache. No nausea. Lumbar drain in place. 09/22/2017: No complaints. States that her walking seems better today. Exam Results Vital Signs Date Time Temp Pulse Resp B/P (MAP) Pulse Ox O2 Delivery O2 Flow Rate FiO2 09/22/17 16:04 97.9 81 20 137/65 (89) 93 09/22/17 14:57 21 Physical Examination 09/22/2017 examination is stable. She is awake and alert Speech clear and appropriate Mild to moderate recent greater than remote memory loss. Follow simple commands well Extraocular movements intact Facial motor movements intact Sensation intact all extremities Strength normal major flexion and extension groups all extremities Angel's response absent bilateral No ankle clonus Lumbar drain in place with slightly yellow CSF output. Lab, Micro, Other Results Laboratory Tests Test 09/22/17 04:00 White Blood Count 9.1 TH/MM3 Red Blood Count 4.89 MIL/MM3 Hemoglobin 14.7 GM/DL Hematocrit 41.9 % Mean Corpuscular Volume 85.7 FL Mean Corpuscular Hemoglobin 30.0 PG Mean Corpuscular Hemoglobin Concent 35.1 % Red Cell Distribution Width 13.7 % Platelet Count 281 TH/MM3 Mean Platelet Volume 8.6 FL Neutrophils (%) (Auto) 61.6 % Lymphocytes (%) (Auto) 25.3 % Monocytes (%) (Auto) 8.8 % Eosinophils (%) (Auto) 3.2 % Basophils (%) (Auto) 1.1 % Neutrophils # (Auto) 5.6 TH/MM3 Lymphocytes # (Auto) 2.3 TH/MM3 Monocytes # (Auto) 0.8 TH/MM3 Eosinophils # (Auto) 0.3 TH/MM3 Basophils # (Auto) 0.1 TH/MM3 CBC Comment DIFF FINAL Differential Comment Blood Urea Nitrogen 12 MG/DL Creatinine 0.80 MG/DL Random Glucose 121 MG/DL Total Protein 7.7 GM/DL Albumin 3.2 GM/DL Calcium Level 8.9 MG/DL Alkaline Phosphatase 144 U/L Aspartate Amino Transf (AST/SGOT) 38 U/L Alanine Aminotransferase (ALT/SGPT) 53 U/L Total Bilirubin 0.6 MG/DL Sodium Level 141 MEQ/L Potassium Level 3.2 MEQ/L Chloride Level 106 MEQ/L Carbon Dioxide Level 23.6 MEQ/L Anion Gap 11 MEQ/L Estimat Glomerular Filtration Rate 70 ML/MIN Medical Decision Making Impression and Plan Impression: Tolerating lumbar subarachnoid drain. Seems to be improving slowly in physical therapy. Ambulated 120 feet today. Plan: Continue subarachnoid drain until 10/12/2017. We will increase drain output tonight. Continue physical therapy Plan discussed with patient. Need to discuss further plans regarding possible shunt placement with family. Benny Ayala MD September 22, 2017 19:44
[2017-09-23] VITALS: BP 147/69; PULSE 81; RESP 18; TEMP 98.8; O2SAT 94
[2017-09-23 04:00] VITALS: BP 148/67; PULSE 73; RESP 18; TEMP 98.3; O2SAT 94
[2017-09-23] MEDS: PENTOXIFYLLINE 400 MG CONTROLLED RELEASE TAB PO SCH ×3 (06:13→22:05)
--- NOTE | 2017-09-23 07:55 | HHI.PR ---
Objective Vital Signs Date Time Temp Pulse Resp B/P (MAP) Pulse Ox O2 Delivery O2 Flow Rate FiO2 09/23/17 04:00 98.3 73 18 148/67 (94) 94 09/23/17 00:00 98.8 81 18 147/69 (95) 94 09/22/17 20:00 98.1 89 18 141/73 (95) 95 09/22/17 16:04 97.9 81 20 137/65 (89) 93 09/22/17 15:49 81 09/22/17 14:57 97 21 09/22/17 12:00 75 09/22/17 11:48 97.8 83 20 131/65 (87) 96 09/22/17 08:00 74 I/O 09/22/17 09/22/17 09/22/17 09/23/17 09/23/17 09/23/17 07:00 15:00 23:00 07:00 15:00 23:00 Output Total 30 ml 30 ml Balance -30 ml -30 ml Drainage Total 30 ml 30 ml # Voids 1 1 Result Diagram: 09/22/17 0400 09/22/17 0400 Objective Remarks awake aler tnot mo or yr moves well but very small stepa dn dillon with turn nl tone no tremor can take larger steps incontinent urine in bed and notes hx of that 09/19/17 not yr awake alert 09/20/17 awake alert not yr gait medium stride still 4 steps to turn walking some better 09/21/17 maybe turns a little better still shorter stride - 09/22/17 still smaller steps some shuffle this am not mo or yr ------- 09/23/17 ox3 gait still smaller steps Assessment and Plan Assessment and Plan imp dementia small steps incont and large vents prob nph will dom, lumbar drain nusu oob PT labs mri c spine neg off asa no cva fu eeg echo us 09/19/17 nph us neg i dw grandson we should set up lumbar drain for am if son agrees dc hep one dose ceftriaxone with ua just to be sure if doing drain 09/20/17 gait some better have PT walk b4 drain 09/21/17 no major change although was doing a little better b4 drain maybe turning a bit better could consider shunt on basis of dementia check tau and ab42 csf for ad 09/22/17 i dont see huge change PT though better yest will defer to dr rubio 09/23/17 i dont see huge gait change but ms better today and overall feeling is gait maybe better so i would advocate shunt done i will be out of town next two weeks defer to jo and [facility] office Ovidio Queen MD Sep 23, 2017 07:55
[2017-09-23] MEDS: DOCUSATE SODIUM 50 MG/SENNA 8.6 MG TAB PO SCH ×2 (07:58→21:00)
[2017-09-23] MEDS: ATORVASTATIN 40 MG TAB PO SCH (07:59)
[2017-09-23] MEDS: LISINOPRIL 20 MG TAB PO SCH (07:59)
[2017-09-23] MEDS: amLODIPine BESYLATE 5 MG TAB PO SCH (07:59)
[2017-09-23 08:00] VITALS: BP 138/71; PULSE 64; PULSE 82; RESP 18; TEMP 98.1; O2SAT 97
[2017-09-23] MEDS: SODIUM CHLORIDE 0.9% FLUSH 10 ML FLUSH IV FLUSH SCH ×2 (08:00→22:05)
[2017-09-23] MEDS: CHOLECALCIFEROL (VIT D3) 1000 UNIT TAB PO SCH (08:00)
[2017-09-23 08:26] LABS: METHYLMALONIC ACID 0.14 nmol/mL (<=0.40)
[2017-09-23 08:35] LABS: AUTOMATED NEUTROPHIL # 5.8 TH/MM3 (1.8-7.7); BASOPHIL # 0.1 TH/MM3 (0-0.2); BASOPHIL % 1.1 % (0.0-2.0); EOSINOPHIL # 0.2 TH/MM3 (0-0.4); EOSINOPHIL % 2.7 % (0.0-4.0); HEMATOCRIT 44.1 % (35.0-46.0); HEMOGLOBIN 15.4 GM/DL (11.6-15.3); LYMPHOCYTE # 2.2 TH/MM3 (1.0-4.8); MEAN CELL VOLUME 85.5 FL (80.0-100.0); MEAN PLATELET VOLUME 8.3 FL (7.0-11.0); MONO % 7.8 % (0.0-8.0); MONOCYTE # 0.7 TH/MM3 (0-0.9); NEUT % 64.4 % (16.0-70.0); PLATELET COUNT 299 TH/MM3 (150-450); RED BLOOD COUNT 5.15 MIL/MM3 (4.00-5.30); RED CELL DISTRIBUTION WIDTH 13.9 % (11.6-17.2)
[2017-09-23 08:58] LABS: ALBUMIN 3.5 GM/DL (3.4-5.0); AST (GOT) 37 U/L (15-37); BLOOD UREA NITROGEN 12 MG/DL (7-18); CALCIUM 9.2 MG/DL (8.5-10.1); CHLORIDE 105 MEQ/L (98-107); CREATININE 0.75 MG/DL (0.50-1.00); GLOMERULAR FILTRATION RATE 75 ML/MIN (>89); GLUCOSE,RANDOM 118 MG/DL (74-106); SODIUM (NA) 139 MEQ/L (136-145)
[2017-09-23 08:59] LABS: ALT (GPT) 52 U/L (10-53)
[2017-09-23 09:02] LABS: ALKALINE PHOSPHATASE 150 U/L (45-117); TOTAL BILIRUBIN ADULT 0.7 MG/DL (0.2-1.0); TOTAL PROTEIN 8.3 GM/DL (6.4-8.2)
[2017-09-23] MEDS: ACETAMINOPHEN 325 MG TAB PO PRN ×2 (11:43→18:03)
--- NOTE | 2017-09-23 11:48 | HHI.PR ---
Subjective Remarks No complaints from the patient today. She feels her strength and functionality is improving. Monitoring of lumbar drain ongoing. Determination for need of shunt in process. Patient has no complaints today. Objective Vital Signs Date Time Temp Pulse Resp B/P (MAP) Pulse Ox O2 Delivery O2 Flow Rate FiO2 09/23/17 11:00 21 09/23/17 08:00 82 09/23/17 08:00 98.1 64 18 138/71 (93) 97 09/23/17 04:00 98.3 73 18 148/67 (94) 94 09/23/17 00:00 98.8 81 18 147/69 (95) 94 09/22/17 20:00 98.1 89 18 141/73 (95) 95 09/22/17 16:04 97.9 81 20 137/65 (89) 93 09/22/17 15:49 81 09/22/17 14:57 97 21 09/22/17 12:00 75 09/22/17 11:48 97.8 83 20 131/65 (87) 96 I/O 09/22/17 09/22/17 09/22/17 09/23/17 09/23/17 09/23/17 07:00 15:00 23:00 07:00 15:00 23:00 Output Total 30 ml 30 ml Balance -30 ml -30 ml Drainage Total 30 ml 30 ml # Voids 1 1 Result Diagram: 09/23/17 0734 09/23/17 0734 Objective Remarks GENERAL: NAD, A&Ox3 HEAD: Normocephalic. NECK: Supple, trachea midline. No lymphadenopathy. EYES: No scleral icterus. No injection or drainage. CARDIOVASCULAR: Regular rate and rhythm without murmurs, gallops, or rubs. RESPIRATORY: Breath sounds equal bilaterally. No accessory muscle use. GASTROINTESTINAL: Abdomen soft, non-tender, nondistended. MUSCULOSKELETAL: No cyanosis, or edema. Lumbar drain is in place. SKIN: Warm and dry. NEURO: No focal neurological deficitis. A/P Problem List: (1) Normal pressure hydrocephalus ICD Code: G91.2 - (Idiopathic) normal pressure hydrocephalus (2) Fall ICD Code: W19.XXXA - Unspecified fall, initial encounter (3) UTI (urinary tract infection) ICD Code: N39.0 - Urinary tract infection, site not specified Assessment and Plan 77-year-old female admitted with syncopal episodes discovered to be related to normal pressure hydrocephalus No significant changes overnight. Continue monitoring lumbar drain. Ongoing determination for need for shunt. Syncope Normal pressure hydrocephalus Lumbar drain is now in place Patient is return to baseline status Neurology following Neurosurgery following Continue to maintain lumbar drain Determination of need for shunt referred to neurology and neurosurgery Rhabdomyolysis Result Hypertension Continue baseline treatment Follow blood pressures Adjust treatments as needed Continue lisinopril Continue Norvasc Continue clonidine as needed Chronic vitamin D deficiency Vitamin D supplementation continue DVT prophylaxis SCDs Caution with blood thinners given procedure Flip Marin MD Sep 23, 2017 11:48
[2017-09-23 12:01] VITALS: BP 116/56; PULSE 82; RESP 20; TEMP 97.8; O2SAT 96
[2017-09-23 12:17] LABS: CSF LYMPHOCYTES 57 %; CSF MONOCYTES 43 %; CSF NEUTROPHILS 0 %; RBC TUBE #1 343 /MM3; SUPERNATE COLOR TUBE #1 CLEAR (CLEAR); WBC TUBE #1 7 /MM3 (0-10)
[2017-09-23 12:19] LABS: TOTAL PROTEIN,CSF 43.3 MG/DL (15.0-45.0)
--- NOTE | 2017-09-23 15:43 | HM ---
Date Performed: 09/21/2017 Time Performed: 17:34:00 HOOKUP DATE: 09/21/17 05:34:00 PM Wed ANALYSIS START TIME: 09/21/2017 5:39:00 PM ANALYSIS END TIME: 09/22/2017 3:23:06 PM PATIENT AGE: 77 PATIENT HEIGHT PATIENT WEIGHT DRUG LIST PATIENT DIAGNOSIS: FALL TEST NARRATIVE: The patient's average heart rate was 77 BPM. Heart rates greater than 120 B PM were noted < 1% of the time. No episodes of bradycardia were noted. No pauses exceeding 2.0 s econds were noted. 57 ventricular ectopics, which represented < 1% of the total beat count, were noted. The highest ventricular ectopic frequency occurred from 05:00 AM to 06:00 AM Tameka. During thi s time 7 VE(s) occurred. Ventricular ectopics were observed as 51 isolated beat(s) and as 3 couplet( s). No runs were noted. 151 supraventricular ectopics, which represented < 1% of the total beat count, were noted. The highest supraventricular ectopic frequency occurred from 10:00 PM to 11:00 PM Wed. During this time 19 SVE(s) occurred. No episodes of ST depression (defined as -1.0 mm or m ore) were noted in channel 1. No episodes of ST depression (defined as -1.0 mm or more) were noted i n channel 2. No episodes of ST depression (defined as -1.0 mm or more) were noted in channel 3. TEST INTERPRETATION: Patient was monitored for 21 hours and 44 minutes. The average heart rate w as 77 with a minimum heart rate of 58 and a maximum heart rate of 154. There were 51 PVCs with 3 vent ricular couplets and several short atrial runs, longest 8 beats. Conclusions: Holter notable for occa sional ectopy and several short atrial runs, but no sustained atrial fibrillation or other dysrhythmi a. Signed by : Juan Delacruz
[2017-09-23 16:00] VITALS: BP 118/62; PULSE 86; RESP 19; TEMP 98; O2SAT 93
[2017-09-23 20:00] VITALS: BP 121/58; PULSE 82; RESP 18; TEMP 98.8; O2SAT 92
--- NOTE | 2017-09-23 22:41 | HHI.NSPN ---
History Chief Complaint: No complaints Interval History 77-year-old female with history of progressive gait difficulty, memory loss, loss of bladder control. Lumbar subarachnoid drain in place for possible NPH 09/21/2017: No complaint of headache. No nausea. Lumbar drain in place. 09/22/2017: No complaints. States that her walking seems better today. 09/23/2017: Patient states that her gait continues to improve. She is not shuffling any longer. Exam Results Vital Signs Date Time Temp Pulse Resp B/P (MAP) Pulse Ox O2 Delivery O2 Flow Rate FiO2 09/23/17 20:00 98.8 82 18 121/58 (79) 92 09/23/17 17:47 21 Intake and Output 09/23/17 09/23/17 09/24/17 08:00 16:00 00:00 Intake Total 960 ml Balance 960 ml Physical Examination She is awake and alert Speech clear and appropriate Mild to moderate recent greater than remote memory loss. Follow simple commands well Extraocular movements intact Facial motor movements intact Sensation intact all extremities Strength normal major flexion and extension groups all extremities Angel's response absent bilateral No ankle clonus Lumbar drain in place with slightly yellow CSF output. Lab, Micro, Other Results Laboratory Tests Test 09/23/17 07:34 09/23/17 09:40 White Blood Count 9.0 TH/MM3 Red Blood Count 5.15 MIL/MM3 Hemoglobin 15.4 GM/DL Hematocrit 44.1 % Mean Corpuscular Volume 85.5 FL Mean Corpuscular Hemoglobin 30.0 PG Mean Corpuscular Hemoglobin Concent 35.0 % Red Cell Distribution Width 13.9 % Platelet Count 299 TH/MM3 Mean Platelet Volume 8.3 FL Neutrophils (%) (Auto) 64.4 % Lymphocytes (%) (Auto) 24.0 % Monocytes (%) (Auto) 7.8 % Eosinophils (%) (Auto) 2.7 % Basophils (%) (Auto) 1.1 % Neutrophils # (Auto) 5.8 TH/MM3 Lymphocytes # (Auto) 2.2 TH/MM3 Monocytes # (Auto) 0.7 TH/MM3 Eosinophils # (Auto) 0.2 TH/MM3 Basophils # (Auto) 0.1 TH/MM3 CBC Comment DIFF FINAL Differential Comment Blood Urea Nitrogen 12 MG/DL Creatinine 0.75 MG/DL Random Glucose 118 MG/DL Total Protein 8.3 GM/DL Albumin 3.5 GM/DL Calcium Level 9.2 MG/DL Alkaline Phosphatase 150 U/L Aspartate Amino Transf (AST/SGOT) 37 U/L Alanine Aminotransferase (ALT/SGPT) 52 U/L Total Bilirubin 0.7 MG/DL Sodium Level 139 MEQ/L Potassium Level 3.6 MEQ/L Chloride Level 105 MEQ/L Carbon Dioxide Level 22.0 MEQ/L Anion Gap 12 MEQ/L Estimat Glomerular Filtration Rate 75 ML/MIN CSF Volume (Tube 1) 2.0 ML CSF Supernatant Color (tube 1) CLEAR CSF Gross Blood (Tube 1) TRACE CSF WBC (Tube 1) 7 /MM3 CSF RBC (Tube 1) 343 /MM3 CSF Neutrophils 0 % CSF Lymphocytes 57 % CSF Monocytes 43 % CSF Glucose 65 MG/DL CSF Total Protein 43.3 MG/DL Medical Decision Making Impression and Plan Impression: Gait continues to improve with subarachnoid drain Plan: Discontinue lumbar subarachnoid drain Discussed with nursing staff Flat bedrest for 8 hours after drain removed If no sign of CSF leak on 09/24/2017, may be discharged home with outpatient follow-up. Benny Ayala MD Sep 23, 2017 22:41
[2017-09-24] VITALS: BP 140/67; PULSE 70; RESP 18; TEMP 98; O2SAT 97
[2017-09-24 04:00] VITALS: BP 147/70; PULSE 83; RESP 18; TEMP 98.3; O2SAT 96
[2017-09-24] MEDS: PENTOXIFYLLINE 400 MG CONTROLLED RELEASE TAB PO SCH ×2 (06:01→14:01)
[2017-09-24 07:44] VITALS: BP 151/67; PULSE 78; RESP 16; TEMP 98; O2SAT 93
[2017-09-24] MEDS: DOCUSATE SODIUM 50 MG/SENNA 8.6 MG TAB PO SCH (07:48)
[2017-09-24] MEDS: SODIUM CHLORIDE 0.9% FLUSH 10 ML FLUSH IV FLUSH SCH (07:49)
[2017-09-24] MEDS: ATORVASTATIN 40 MG TAB PO SCH (07:49)
[2017-09-24] MEDS: amLODIPine BESYLATE 5 MG TAB PO SCH (07:49)
[2017-09-24] MEDS: CHOLECALCIFEROL (VIT D3) 1000 UNIT TAB PO SCH (07:49)
[2017-09-24] MEDS: LISINOPRIL 20 MG TAB PO SCH (07:50)
[2017-09-24 11:11] VITALS: PULSE 76
[2017-09-24 11:47] VITALS: BP 129/64; PULSE 89; RESP 18; TEMP 98.7; O2SAT 98
--- NOTE | 2017-09-24 12:07 | HHI.NSPN ---
History Interval History Evaluation for NPH. Patient reports she is doing well. Denies any headaches. Reports she was able to ambulate with walker with minimal assist Exam Results Vital Signs Date Time Temp Pulse Resp B/P (MAP) Pulse Ox O2 Delivery O2 Flow Rate FiO2 09/24/17 11:47 98.7 89 18 129/64 (85) 98 09/23/17 17:47 21 Physical Examination Alert and awake, pleasant. Follows commands Sitting up in bed. Moves all extremities well Medical Decision Making Impression and Plan Patient doing well post removal of drain. May discharge from neurosurgical standpoint Aurelio Velez MD Sep 24, 2017 12:07
[2017-09-24] MEDS ORDERED: CHOL1000 PO (12:36)
[2017-09-24] MEDS ORDERED: AMLO5 PO (12:36)
[2017-09-24] MEDS ORDERED: ALPR0.25 PO (12:36)
--- NOTE | 2017-09-24 14:05 | HHI.DS ---
Discharge Summary Admission Date September 19, 2017 at 13:37 Discharge Date: Sep 24, 2017 Admitting Diagnosis (1) Fall ICD Code: W19.XXXA - Unspecified fall, initial encounter Diagnosis: Principal (2) UTI (urinary tract infection) ICD Code: N39.0 - Urinary tract infection, site not specified Diagnosis: Principal (3) Rhabdomyolysis ICD Code: M62.82 - Rhabdomyolysis Diagnosis: Principal Procedures Lumbar Puncture with drain placed (removed prior to discharge) Brief History - From Admission This is a 77-year-old female with a PMH of HTN and h/o CVA who was brought to the ER by EMS after being found lying on the floor by Son. Pt w/ little recollection of events. States she's had h/o recurrent falls in the past, however does not recall falling today. Denies fever, chills, nausea, vomiting, diarrhea, dizziness or chest pain. On arrival, BP 161/73, HR 97, O2 sat 96% on RA, Temp 99.5. WBC 11.8. K+ 3.2. CPK 952. Lactic Acid 1.6. INR 1.0. UA positive for UTI. CT Head with no acute findings. CXR cardiomegaly. Hip X- ray moderate osteoarthritis no acute fracture. S/p Levaquin in ER. CBC/BMP: 09/23/17 0734 09/23/17 0734 Significant Findings Laboratory Tests Test 09/22/17 04:00 09/23/17 07:34 09/23/17 09:40 Monocytes (%) (Auto) 8.8 % (0.0-8.0) Random Glucose 121 MG/DL (74-106) 118 MG/DL (74-106) Albumin 3.2 GM/DL (3.4-5.0) Alkaline Phosphatase 144 U/L (45-117) 150 U/L (45-117) Aspartate Amino Transf (AST/SGOT) 38 U/L (15-37) Potassium Level 3.2 MEQ/L (3.5-5.1) Estimat Glomerular Filtration Rate 70 ML/MIN (>89) 75 ML/MIN (>89) Hemoglobin 15.4 GM/DL (11.6-15.3) Total Protein 8.3 GM/DL (6.4-8.2) CSF RBC (Tube 1) 343 /MM3 (NONE) PE at Discharge General: Elderly female in no acute distress. HEENT: Contusion on left forehead. Heart: Regular rate and rhythm. No murmur. Lungs: Clear to auscultation bilaterally. No wheezes, rales, or rhonchi. Breathing is nonlabored. Abdomen: Soft, nontender, nondistended. Extremities: No lower extremity edema. Psych: Alert and oriented. Answers questions appropriately. Neuro: Normal speech. No focal deficits noted. Hospital Course Mrs. Damian is a 77-year-old female. She was admitted secondary to syncopal episode and dizziness and falls. 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 Lumbar puncture with drain placement was provided. This is monitored over several days to help determine whether shunt was appropriate at this time. Shunt is not determined to be appropriate at this point. The lumbar drain is removed. Patient was monitored overnight after drain removal. No evidence of cerebral spinal fluid leak. Patient is improved compared to when she was admitted, but she will need further physical therapy at time of discharge. She is medically clear and stable for discharge to correction facility at this time. Pt Condition on Discharge: Stable Discharge Disposition: Discharge to SNF Discharge Time: > 30 minutes Discharge Instructions DIET: Follow Instructions for: As Tolerated, No Restrictions Speech Therapy-Diet Recommends: Regular Activities you can perform: Regular-No Restrictions Follow up Referrals: Neurology - 2 Weeks Neurosurgery - 2 Weeks PCP Follow-up - 2 Weeks New Medications: Amlodipine (Norvasc) 5 Mg Tab 5 MG PO DAILY for Blood Pressure Management, #30 TAB Cholecalciferol (Gnp Vitamin D3 Extra Stre) 1,000 Unit Tab 2000 UNITS PO DAILY for vitamin, #30 TAB Changed Medications: Alprazolam (Alprazolam) 0.25 Mg Tab 0.125 MG PO BID PRN for ANXIETY, #20 TAB 0 Refills (Medication details modified) Continued Medications: Atorvastatin (Atorvastatin) 40 Mg Tab 40 MG PO HS for Cholesterol Management, #30 TAB 0 Refills Lisinopril-Hctz (Lisinopril-Hctz) 20-25 Mg Tab 1 TAB PO DAILY for Blood Pressure Management, #30 TAB 0 Refills Loratadine (Allergy Relief) 10 Mg Tab 10 MG PO DAILY, TAB Pentoxifylline ER (Pentoxifylline ER) 400 Mg Tab 400 MG PO TID for Intermittent claudication, #90 TAB 0 Refills Flip Marin MD Sep 24, 2017 14:05
== END 2017-09-24 15:51 | DRG 57 ==
LOC: NEPE 20:51 → EDBD 20:51 → NEDA 22:57 → NEDH 09-17 02:07 → NEPHCDU 09-17 14:46 → OBSVTOIN 09-19 13:37 → NEPFCDU 09-19 16:17 → N05B 09-20 10:01
PROVIDERS: ADMIT Hospitalist; ATTEND Hospitalist
PROC: 009U30Z Drainage of Spinal Canal with Drainage Device, Percutaneous Approach (ICD-10-PCS; principal; 2017-09-21)
PROC: B01BZZZ Fluoroscopy of Spinal Cord (ICD-10-PCS; 2017-09-21)
DX: G91.2 (Idiopathic) normal pressure hydrocephalus (principal); M62.82 Rhabdomyolysis; I11.9 Hypertensive heart disease without heart failure; G93.89 Other specified disorders of brain; E86.0 Dehydration; R15.9 Full incontinence of feces; N39.0 Urinary tract infection, site not specified; G31.89 Other specified degenerative diseases of nervous system; R55 Syncope and collapse; R29.6 Repeated falls; M16.0 Bilateral primary osteoarthritis of hip; F02.80 Dementia in other diseases classified elsewhere, unspecified severity, without behavioral disturbance, psychotic disturbance, mood disturbance, and anxiety; E78.5 Hyperlipidemia, unspecified; R73.9 Hyperglycemia, unspecified; M54.30 Sciatica, unspecified side; E87.6 Hypokalemia; E55.9 Vitamin D deficiency, unspecified; W19.XXXA Unspecified fall, initial encounter; Y92.009 Unspecified place in unspecified non-institutional (private) residence as the place of occurrence of the external cause; Z86.73 Personal history of transient ischemic attack (TIA), and cerebral infarction without residual deficits
CPT/HCPCS: 63741; 70450; 70553; 71045; 72141; 73502; 77003; 80048; 80053; 80061; 81001; 82140; 82306; 82550; 82552; 82607; 82746; 82945; 82948; 83036; 83605; 83735; 83921; 84100; 84157; 84207; 84425; 84443; 84484; 85025; 85610; 85652; 85730; 86038; 86430; 86592; 87086; 89051; 93005; 93225; 93226; 93306; 93880; 93970; 95819; 99152; 99153; A9579; C1755; G8987-GP; G8988-GP; G8996-GN; G8997-GN; G8998-GN; J0690; J0696; J1644; J1956; J2250; J2270; J3010; J3480; J7030; J7040